=== PATIENT | female | born 1955 | race Caucasian/White ===

== ENCOUNTER → 2016-09-03 | Outpatient (CLI) | payer OTHER ==
[2016-09-03 09:50] LABS: ABSOLUTE EOSINOPHILS # (AUTO) 0.2 10^3/uL (0.0-0.6); ABSOLUTE LYMPHOCYTES (AUTO) 1.3 10^3/uL (0.5-4.7); ABSOLUTE MONOCYTES (AUTO) 0.3 10^3/uL (0.1-1.4); ABSOLUTE NEUT (AUTO) 1.5 10^3/uL (1.7-8.2); BASOPHILS % (AUTO) 0.6 % (0-2); EOSINOPHILS % (AUTO) 4.8 % (0-6); HEMATOCRIT 40.9 % (36.0-47.0); HEMOGLOBIN 13.5 g/dL (12.0-15.5); HGB HCT DIFFERENCE -0.4; LYMPHOCYTES % (AUTO) 38.2 % (13-45); MEAN CORPUSCULAR HEMOGLOBIN 28.7 pg (27.0-33.4); MEAN CORPUSCULAR VOLUME 87 fl (80-97); MONOCYTES % (AUTO) 10.2 % (3-13); RED CELL DISTRIBUTION WIDTH 13.1 % (11.5-14.0); SEGMENTED NEUTROPHILS % (AUTO) 46.2 % (42-78); WHITE BLOOD COUNT 3.3 10^3/uL (4.0-10.5)
[2016-09-03 10:18] LABS: ALANINE AMINOTRANSFERASE 69 U/L (9-52); ALKALINE PHOSPHATASE 134 U/L (38-126); ANION GAP 10 (5-19); ASPARTATE AMINO TRANSFERASE 37 U/L (14-36); BILIRUBIN,DIRECT 0.3 mg/dL (0.0-0.4); BILIRUBIN,TOTAL 0.6 mg/dL (0.2-1.3); BLOOD UREA NITROGEN 14 mg/dL (7-20); CALCIUM 9.6 mg/dL (8.4-10.2); CARBON DIOXIDE 28 mmol/L (22-30); CHLORIDE 103 mmol/L (98-107); CHOLESTEROL 190.49 mg/dL (0-200); CREATININE RESULT 0.63 mg/dL (0.52-1.25); GLUCOSE 165 mg/dL (75-110); POTASSIUM 4.2 mmol/L (3.6-5.0); SODIUM 141.1 mmol/L (137-145); TOTAL PROTEIN 6.5 g/dL (6.3-8.2); TRIGLYCERIDES 51 mg/dL (<150)
[2016-09-03 10:29] LABS: DIRECT LDL 44 mg/dL (<100)
[2016-09-03 10:32] LABS: Direct HDL 127 mg/dL (>40)
== END ==
LOC: CCC 08:45
DX: Z79.01 Long term (current) use of anticoagulants (principal); Z79.899 Other long term (current) drug therapy; Z51.81 Encounter for therapeutic drug level monitoring
CPT/HCPCS: 36415; 80053; 80061; 83036; 84443; 85025

== ENCOUNTER → 2016-10-06 | Outpatient (CLI) | payer OTHER ==
[2016-10-06 08:46] LABS: ABSOLUTE EOSINOPHILS # (AUTO) 0.2 10^3/uL (0.0-0.6); ABSOLUTE LYMPHOCYTES (AUTO) 1.2 10^3/uL (0.5-4.7); ABSOLUTE MONOCYTES (AUTO) 0.4 10^3/uL (0.1-1.4); ABSOLUTE NEUT (AUTO) 1.6 10^3/uL (1.7-8.2); BASOPHILS % (AUTO) 0.6 % (0-2); EOSINOPHILS % (AUTO) 6.3 % (0-6); HEMATOCRIT 38.5 % (36.0-47.0); HGB HCT DIFFERENCE 0.5; LYMPHOCYTES % (AUTO) 34.3 % (13-45); MEAN CORPUSCULAR HEMOGLOBIN 29.3 pg (27.0-33.4); MEAN CORPUSCULAR HGB CONC 33.9 g/dL (32.0-36.0); MEAN CORPUSCULAR VOLUME 86 fl (80-97); MONOCYTES % (AUTO) 10.6 % (3-13); RED BLOOD COUNT 4.46 10^6/uL (3.72-5.28); RED CELL DISTRIBUTION WIDTH 13.5 % (11.5-14.0); SEGMENTED NEUTROPHILS % (AUTO) 48.2 % (42-78); WHITE BLOOD COUNT 3.4 10^3/uL (4.0-10.5)
== END ==
LOC: CCC 08:00
DX: E11.8 Type 2 diabetes mellitus with unspecified complications (principal)
CPT/HCPCS: 36415; 85025

== ENCOUNTER → 2018-03-21 | Outpatient (CLI) | payer OTHER ==
[2018-03-21 09:22] LABS: ABSOLUTE EOSINOPHILS # (AUTO) 0.3 10^3/uL (0.0-0.6); ABSOLUTE LYMPHOCYTES (AUTO) 1.3 10^3/uL (0.5-4.7); ABSOLUTE MONOCYTES (AUTO) 0.4 10^3/uL (0.1-1.4); ABSOLUTE NEUT (AUTO) 1.5 10^3/uL (1.7-8.2); BASOPHILS % (AUTO) 0.5 % (0-2); EOSINOPHILS % (AUTO) 7.8 % (0-6); HEMATOCRIT 38.5 % (36.0-47.0); LYMPHOCYTES % (AUTO) 37.8 % (13-45); MEAN CORPUSCULAR HEMOGLOBIN 28.6 pg (27.0-33.4); MEAN CORPUSCULAR HGB CONC 33.7 g/dL (32.0-36.0); MEAN CORPUSCULAR VOLUME 85 fl (80-97); MONOCYTES % (AUTO) 10.6 % (3-13); PLATELET COUNT 190 10^3/uL (150-450); RED BLOOD COUNT 4.54 10^6/uL (3.72-5.28); SEGMENTED NEUTROPHILS % (AUTO) 43.3 % (42-78); TOTAL CELLS COUNTED % (AUTO) 100 %; WHITE BLOOD COUNT 3.5 10^3/uL (4.0-10.5)
[2018-03-21 09:44] LABS: ALANINE AMINOTRANSFERASE 79 U/L (9-52); ALBUMIN 3.9 g/dL (3.5-5.0); ALKALINE PHOSPHATASE 159 U/L (38-126); ANION GAP 5 (5-19); ASPARTATE AMINO TRANSFERASE 48 U/L (14-36); BILIRUBIN,DIRECT 0.1 mg/dL (0.0-0.4); BILIRUBIN,TOTAL 0.6 mg/dL (0.2-1.3); BLOOD UREA NITROGEN 11 mg/dL (7-20); CALCIUM 9.1 mg/dL (8.4-10.2); CARBON DIOXIDE 32 mmol/L (22-30); CHLORIDE 104 mmol/L (98-107); GLUCOSE 120 mg/dL (75-110); SODIUM 140.9 mmol/L (137-145); TOTAL PROTEIN 6.1 g/dL (6.3-8.2); TRIGLYCERIDES 30 mg/dL (<150)
[2018-03-21 09:55] LABS: DIRECT LDL 51 mg/dL (<100)
== END ==
LOC: CCC 08:41
DX: E11.8 Type 2 diabetes mellitus with unspecified complications (principal)
CPT/HCPCS: 36415; 80053; 80061; 83036; 84443; 85025

== ENCOUNTER 2018-06-29 10:25 | Day surgery (SDC) | payer OTHER ==
[~2018-06-29 10:25] MED LIST: KETOROLAC TROMETHAMINE 0.45% 4 DROP/0.4 ML DROPERETTE OS PRN; MIDAZOLAM 2 MG/2 ML INJ ONE
[2018-06-29] MEDS: CYCLOPENTOLATE 0.2%/PHENYLEPHRINE 1% OPH SOLN 2 ML OS PRN ×3 (11:35→11:55)
[2018-06-29] MEDS: BESIFLOXACIN HCL 0.6% OPH SUSP 5 ML BOTTLE OS PRN ×4 (11:35→12:47)
[2018-06-29] MEDS: TROPICAMIDE 1% OPH SOLN 3 ML OS PRN ×3 (11:35→11:55)
[2018-06-29] MEDS: TETRACAINE HCL 0.5% OPH SOLN 4 ML OS PRN ×3 (11:36→12:15)
[2018-06-29] MEDS: LIDOCAINE 1%/PHENYLEPHRINE 1.5% 1 ML VIAL ONE ×2 (12:27)
[2018-06-29] MEDS: CHONDR SU A NA/HYALUR INTRAOC KIT (SURGICARE) ONE ×2 (12:27)
[2018-06-29] MEDS: EPINEPHRINE INJ/PF 1 MG/1 ML AMPULE ONE ×2 (12:27)
[2018-06-29] MEDS: DORZOLAMIDE HCL 2%/TIMOLOL MALEAT 0.5% OPH SOLN 10 ML OS PRN ×2 (12:47)
--- NOTE | 2018-06-29 20:29 | [facility] OPERATIVE REPORT E ---
[facility] Operative Report NAME: MERI MCKOY AGE: 63Y DATE OF SURGERY: 06/29/2018 ROOM: PREOPERATIVE DIAGNOSES: 1. CATARACT LEFT EYE. 2. PUPIL MIOSIS, LEFT EYE. POSTOPERATIVE DIAGNOSES: 1. CATARACT LEFT EYE. 2. PUPIL MIOSIS, LEFT EYE. OPERATION: Complex cataract extraction with the use of a Malyugin ring due to pupillary miosis where the pupil measured to be less than 4 mm. SURGEON: JERAMIE WILDE M.D. ANESTHESIA: TOPICAL. COMPLICATIONS: None. ESTIMATED BLOOD LOSS: None. PROCEDURE: After obtaining appropriate consent, the patient left eye was prepped and draped in sterile fashion as well as the surgeon in a sterile manner, and the cataract surgery was started. First, the paracentesis blade was used to make a small side-port incision. Viscoelastic was used to inflate the anterior chamber. Next a 2.4 mm incision was made using a 2.4 mm keratome. At this point, the pupil was less than 4.5 mm and was very miotic. In order to complete the capsulorhexis, a Malyugin ring was inserted and found to be in excellent position to help stabilize the pupil. Following this, a continuous capsulorhexis was made using a cystitome and Utrata forceps. Following this, hydrodissection was carried out to make the lens fully loose and mobile, and it was rotated 90 degrees. Following this, a divide and conquer technique was used to phacoemulsify the lens with a CDE of approximately 6.94. The remaining cortex was removed with irrigation/aspiration. Provisc was instilled into the capsular bag to inflate the bag. A SN60WF lens of 22.0 diopters was placed. The remaining viscoelastic material was removed with irrigation/aspiration. After this the Malyugin ring was removed. Following this, the incision was found to be watertight. Besivance was instilled into the eye and a protective shield was placed over the eye. The patient returned to the postoperative recovery in stable condition. Prior to making the capsulorrhexis, a Malyugin ring was inserted due to very small pupil. This was removed at the end of the case. DICTATING PHYSICIAN: JERAMIE WILDE M.D. [id number] 2021 PHY#: [id number] ID: [id number] JOB#: [id number] ACCT: [id number] cc:JERAMIE WILDE M.D. >
--- NOTE | 2018-06-29 20:29 | [facility] DISCHARGE SUMMARY E ---
[facility] Discharge Summary NAME: MERI MCKOY AGE: 63Y ADMITTED: 06/29/2018 DISCHARGED: This is a 63-year-old female who underwent cataract extraction complex of the left eye with use of the Malyugin ring. DIAGNOSES: 1. Cataract left eye. 2. Pupil myosis of the left eye. She underwent surgery because she was having difficulty with glare from headlights at night. She should be on a regular diet. No bending at the waist and no heavy lifting. She should use her Vigamox, Ilevro, and Durezol at 3:00 p.m. and 8:00 p.m. and sleep with a rigid shield. I will see her for her 1-day postop tomorrow. DICTATING PHYSICIAN: JERAMIE WILDE M.D. [id number] PHY#: [id number] ID: [id number] JOB#: [id number] ACCT: [id number] cc:JERAMIE WILDE M.D. >
== END 2018-06-29 13:31 | disposition home or self-care (01) ==
LOC: SC 10:25
PROVIDERS: ATTEND Internal Medicine
DX: H25.812 Combined forms of age-related cataract, left eye (principal); H57.03 Miosis; H40.013 Open angle with borderline findings, low risk, bilateral; Z96.1 Presence of intraocular lens; I11.9 Hypertensive heart disease without heart failure; I50.9 Heart failure, unspecified; E10.9 Type 1 diabetes mellitus without complications; I49.9 Cardiac arrhythmia, unspecified; Z88.0 Allergy status to penicillin; Z79.899 Other long term (current) drug therapy; Z79.82 Long term (current) use of aspirin; Z79.84 Long term (current) use of oral hypoglycemic drugs; Z79.4 Long term (current) use of insulin
CPT/HCPCS: 66982; 82962; V2632; J2250; J3490 ×2; J0171; J2370; 142

== ENCOUNTER 2018-10-15 15:02 | Emergency (ER) | payer SELFPAY ==
[2018-10-15] MEDS ORDERED: HYDROCODONE/ACETAMINOPHEN 5-325 MG TABLET PO ONE (16:01)
[2018-10-15] MEDS ORDERED: CEPHALEXIN 500 MG CAPSULE PO ONE (16:01)
--- NOTE | 2018-10-15 16:29 | RADIOLOGY REPORT (SQ) ---
EXAM DESCRIPTION: ELBOW RIGHT OVER 2 VIEWS COMPLETED DATE/TIME: 10/15/2018 4:18 pm REASON FOR STUDY: r elbow pain COMPARISON: None. EXAM PARAMETERS: NUMBER OF VIEWS: Four views. TECHNIQUE: AP, lateral and oblique radiographic images acquired of the right elbow. LIMITATIONS: None. FINDINGS: MINERALIZATION: Normal. BONES: No acute fracture or dislocation. Old 3 x 4 mm coronoid process avulsion. 5 mm posterior ole cranon spur at the triceps insertion. JOINTS: Small effusion. SOFT TISSUES: No significant soft tissue swelling. No radiopaque foreign body. OTHER: No other significant finding. IMPRESSION: Small joint effusion. No acute fracture identified. Old 3 x 4 mm coronoid process avul lito. TECHNICAL DOCUMENTATION: JOB ID: [id number] [id number] 2010 [employer]- All Rights Reserved Reading location - IP/workstation name: [email or web address]
--- NOTE | 2018-10-15 16:51 | ER Document Report ---
HPI - HPI Patient complains to provider of: right elbow pain Time Seen by Provider: 10/15/18 15:48 Onset: Yesterday Onset/Duration: Gradual Quality of pain: Achy Pain Level: 3 Context: Patient presents complaining of right elbow tenderness. Patient states that she did grab her dog suddenly when it began to bark when a visitor came to their home. Patient complains of increased pain when she rests her elbow on hard surface. Patient denies any fever or known injury. Associated Symptoms: Other - Right elbow pain Exacerbated by: Movement Relieved by: Denies Similar symptoms previously: No Recently seen / treated by doctor: No - ROS ROS below otherwise negative: Yes Systems Reviewed and Negative: Yes All other systems reviewed and negative - CONSTITUTIONAL Constitutional: DENIES: Fever, Chills - GASTROINTESTINAL Gastrointestinal: DENIES: Nausea - MUSCULOSKELETAL Musculoskeletal: REPORTS: Extremity pain - right elbow, Swelling - DERM Skin Color: Normal Skin Problems: None Past Medical History - General Information source: Patient - Social History Smoking Status: Never Smoker Chew tobacco use (# tins/day): No Frequency of alcohol use: None Drug Abuse: None Occupation: Retail Lives with: Spouse/Significant other Family History: Reviewed & Not Pertinent Patient has suicidal ideation: No Patient has homicidal ideation: No - Past Medical History Cardiac Medical History: Reports: Hx Congestive Heart Failure, Hx Hypertension Denies: Hx Heart Attack Pulmonary Medical History: Denies: Hx Asthma Neurological Medical History: Denies: Hx Cerebrovascular Accident, Hx Seizures Renal/ Medical History: Denies: Hx Peritoneal Dialysis GI Medical History: Denies: Hx Hepatitis, Hx Hiatal Hernia, Hx Ulcer Infectious Medical History: Denies: Hx Hepatitis Past Surgical History: Reports: Hx Open Heart Surgery - 1970 VENTRICULAR DEFECT Vertical Provider Document - CONSTITUTIONAL Agree With Documented VS: Yes Exam Limitations: No Limitations General Appearance: WD/WN, No Apparent Distress - INFECTION CONTROL TRAVEL OUTSIDE OF THE [place] IN LAST 30 DAYS: No - HEENT HEENT: Atraumatic, Normocephalic - NECK Neck: Normal Inspection, Supple - RESPIRATORY Respiratory: Breath Sounds Normal, No Respiratory Distress - CARDIOVASCULAR Cardiovascular: Regular Rate, Regular Rhythm Pulses: Normal: Radial - MUSCULOSKELETAL/EXTREMETIES Musculoskeletal/Extremeties: MAEW, Tender - Right elbow tenderness over olecranon process with mild swelling. Normal skin temperature. Normal skin color. Patient with abrasion near the joint. Tenderness increases with the extremes of full extension and flexion. Course - Re-evaluation Re-evalutation: 10/15/18 16:47 Patient with tenderness over olecranon process with mild swelling. Discussed with patient concern about possible bursitis. Patient does have an abrasion near the left elbow. Will cover with antibiotics for possible cellulitis although suspect likely bursitis is the culprit for patient's pain symptoms. - Vital Signs Vital signs: Temp Pulse Resp BP Pulse Ox 98.5 F 89 17 178/70 H 97 10/15/18 15:08 10/15/18 15:08 10/15/18 15:08 10/15/18 15:08 10/15/18 15:08 - Diagnostic Test Radiology reviewed: Image reviewed, Reports reviewed Discharge - Discharge Clinical Impression: Right elbow pain, Olecranon bursitis of right elbow Condition: Stable Disposition: HOME, SELF-CARE Instructions: Cephalexin ([facility]), Olecranon Bursitis ([facility]), Oral Narcotic Medication ([facility]) Additional Instructions: Return immediately for any new or worsening symptoms: Fever, redness, increased pain, increased swelling or any concerning symptoms Followup with your primary care provider, call tomorrow to make a followup appointment Avoid putting pressure and rubbing elbow on hard surfaces. Prescriptions: Cephalexin Monohydrate [Keflex 500 mg Capsule] 500 mg PO Q6H 5 Days capsule Hydrocodone/Acetaminophen [[place] 5-325 mg Tablet] 1 tab PO Q6 PRN #12 tablet PRN Reason: Forms: Return to Work Referrals: [facility] [Primary Care Provider] - Follow up as needed
[2018-10-15 17:01] VITALS: BP 154/68
== END 2018-10-15 16:55 | disposition home or self-care (01) ==
LOC: ER 15:02
DX: M70.21 Olecranon bursitis, right elbow (principal); S40.812A Abrasion of left upper arm, initial encounter; X58.XXXA Exposure to other specified factors, initial encounter; M25.521 Pain in right elbow; I10 Essential (primary) hypertension
CPT/HCPCS: 99283

== ENCOUNTER → 2018-10-27 | Outpatient (CLI) | payer OTHER ==
[2018-10-27 10:29] LABS: ANION GAP 7 (5-19); BLOOD UREA NITROGEN 11 mg/dL (7-20); CALCIUM 9.8 mg/dL (8.4-10.2); CARBON DIOXIDE 27 mmol/L (22-30); CHLORIDE 104 mmol/L (98-107); GLUCOSE 176 mg/dL (75-110)
== END ==
LOC: CCC 08:55
DX: E11.8 Type 2 diabetes mellitus with unspecified complications (principal)
CPT/HCPCS: 36415; 80048; 83036

== ENCOUNTER → 2019-02-09 | Outpatient (CLI) | payer OTHER ==
--- NOTE | 2019-02-09 14:23 | WOMENS IMAGING REPORT ---
EXAM DESCRIPTION: U/S PELVIS NON-OB COMPLETED DATE/TIME: 02/09/2019 1:23 pm REASON FOR STUDY: N13.9 OBSTRUCTIVE AND REFLUX UROPATHY, UNSPECIFIED N13.9 OBSTRUCTIVE AND REFLUX U ROPATHY, UNSPECIFIED COMPARISON: None. TECHNIQUE: Dynamic and static grayscale images acquired of the pelvis via transabdominal approach an d recorded on PACS. Additional selected color Doppler and spectral images recorded. LIMITATIONS: None. 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 ENDOMETRIAL STRIPE: No mass or fluid detected. CERVIX: No regional mass or cysts evident. RIGHT OVARY AND DOPPLER: Not seen. LEFT OVARY AND DOPPLER: Not seen. FREE FLUID: None noted. OTHER: No bladder mass. Pre and postvoid residuals 329 and 5 cc respectively. MEASUREMENTS: UTERUS: 6.1 x 2.0 x 5.9 cm ENDOMETRIAL STRIPE: Variable between 3.9 and 5.3 mm RIGHT OVARY: Not seen. LEFT OVARY: Not seen. IMPRESSION: Uterus and endometrium as above. Ovaries not identified. No significant postvoid resid ual in the bladder. TECHNICAL DOCUMENTATION: JOB ID: [id number] [employer]- All Rights Reserved Rev-07/15 Reading location - IP/workstation name: [email or web address]
== END ==
LOC: WI 12:44
PROVIDERS: ATTEND Family Medicine
DX: N13.9 Obstructive and reflux uropathy, unspecified (principal); Q51.3 Bicornate uterus
CPT/HCPCS: 76856

== ENCOUNTER → 2019-09-08 | Outpatient (CLI) | payer OTHER ==
[2019-09-08 10:50] LABS: ABSOLUTE EOSINOPHILS # (AUTO) 0.2 10^3/uL (0.0-0.6); ABSOLUTE LYMPHOCYTES (AUTO) 1.3 10^3/uL (0.5-4.7); ABSOLUTE MONOCYTES (AUTO) 0.4 10^3/uL (0.1-1.4); ABSOLUTE NEUT (AUTO) 2.3 10^3/uL (1.7-8.2); BASOPHILS % (AUTO) 0.7 % (0-2); EOSINOPHILS % (AUTO) 4.9 % (0-6); HEMATOCRIT 39.1 % (36.0-47.0); HEMOGLOBIN 13.1 g/dL (12.0-15.5); MEAN CORPUSCULAR HEMOGLOBIN 28.6 pg (27.0-33.4); MEAN CORPUSCULAR HGB CONC 33.6 g/dL (32.0-36.0); MEAN CORPUSCULAR VOLUME 85 fl (80-97); MONOCYTES % (AUTO) 9.6 % (3-13); PLATELET COUNT 197 10^3/uL (150-450); RED BLOOD COUNT 4.59 10^6/uL (3.72-5.28); SEGMENTED NEUTROPHILS % (AUTO) 53.8 % (42-78); TOTAL CELLS COUNTED % (AUTO) 100 %; WHITE BLOOD COUNT 4.2 10^3/uL (4.0-10.5)
[2019-09-08 11:11] LABS: ALBUMIN 4.1 g/dL (3.5-5.0); ALKALINE PHOSPHATASE 138 U/L (38-126); ASPARTATE AMINO TRANSFERASE 49 U/L (14-36); BILIRUBIN,TOTAL 0.6 mg/dL (0.2-1.3); BLOOD UREA NITROGEN 12 mg/dL (7-20); CALCIUM 9.4 mg/dL (8.4-10.2); CHOLESTEROL 194.66 mg/dL (0-200); GLUCOSE 164 mg/dL (75-110); POTASSIUM 3.6 mmol/L (3.6-5.0); TOTAL PROTEIN 6.3 g/dL (6.3-8.2); TRIGLYCERIDES 36 mg/dL (<150)
[2019-09-08 11:16] LABS: ANION GAP 5 (5-19); CARBON DIOXIDE 29 mmol/L (22-30); CHLORIDE 103 mmol/L (98-107)
[2019-09-08 11:27] LABS: DIRECT LDL 42 mg/dL (<100)
== END ==
LOC: CCC 09:21
PROVIDERS: ATTEND Internal Medicine
DX: E11.9 Type 2 diabetes mellitus without complications (principal); I10 Essential (primary) hypertension
CPT/HCPCS: 36415; 80053; 80061; 83036; 84443; 85025

== ENCOUNTER → 2019-10-08 | Outpatient (CLI) | payer OTHER ==
[2019-10-10 05:38] LABS: HEPATITIS C VIRUS AB <0.1 s/co ratio (0.0-0.9); HEPATITS B SURFACE ANTIGEN Negative (Negative)
[2019-10-10 07:15] LABS: HEPATITIS B CORE AB TOT Negative (Negative); HEPATITIS B SURFACE AB QUAL Non Reactive (.)
== END ==
LOC: CCC 14:56
PROVIDERS: ATTEND Internal Medicine
DX: R94.5 Abnormal results of liver function studies (principal)
CPT/HCPCS: 36415; 86704; 86706; 86803; 86804; 87340

== ENCOUNTER 2019-10-29 20:50 | Inpatient (IN) | payer OTHER ==
[2019-10-29] MEDS ORDERED: ACETAMINOPHEN 325 MG TABLET PO ONE (23:32)
--- NOTE | 2019-10-29 23:32 | ER Document Report ---
ED Medical Screen (RME) - General Chief Complaint: Fever Stated Complaint: SHORTNESS OF BREATH Time Seen by Provider: 10/29/19 23:24 Primary Care Provider: [facility] [Primary Care Provider] - Follow up as needed Mode of Arrival: Ambulatory Information source: Patient Notes: 64-year-old female presented to ED for shortness of breath cough low-grade fever pedal edema bilaterally. She states is been going on for about little more than a week but it was coming and going. She states at night when she would put her feet up the pedal edema was going away but now it will not go away. She states over the last couple weeks she is gained about 8 pounds. She states she goes to [facility] and has not been to the doctor for a while. She is alert oriented respirations regular nonlabored speaking in full sentences. I have greeted and performed a rapid initial assessment of this patient. A comprehensive ED assessment and evaluation of the patient, analysis of test results and completion of medical decision making process will be conducted by an additional ED providers. TRAVEL OUTSIDE OF THE [place] IN LAST 30 DAYS: No - Related Data Allergies/Adverse Reactions: latex Allergy (Verified 10/15/18 15:03) Generalized Itching Penicillins Allergy (Verified 10/15/18 15:03) Hives Home Medications: lantus, novalog sliding scale, airbourne, januvia, coreg, amilodipine, low dose asa, lisinopril, metformin, requip Past Medical History - Past Medical History Cardiac Medical History: Reports: Hx Congestive Heart Failure, Hx Hypertension Denies: Hx Heart Attack Pulmonary Medical History: Denies: Hx Asthma Neurological Medical History: Denies: Hx Cerebrovascular Accident, Hx Seizures Renal/ Medical History: Denies: Hx Peritoneal Dialysis GI Medical History: Denies: Hx Hepatitis, Hx Hiatal Hernia, Hx Ulcer Infectious Medical History: Denies: Hx Hepatitis Past Surgical History: Reports: Hx Open Heart Surgery - 1970 VENTRICULAR DEFECT. Denies: Hx Mastectomy, Hx Pacemaker Physical Exam - Vital signs Vitals: Temp Pulse Resp BP Pulse Ox 100.4 F 83 18 165/73 H 98 10/29/19 21:32 10/29/19 21:32 10/29/19 21:32 10/29/19 21:32 10/29/19 21:32 Course - Vital Signs Vital signs: Temp Pulse Resp BP Pulse Ox 100.4 F 83 18 165/73 H 98 10/29/19 21:32 10/29/19 21:32 10/29/19 21:32 10/29/19 21:32 10/29/19 21:32 Doctor's Discharge - Discharge Referrals: [facility] [Primary Care Provider] - Follow up as needed
[2019-10-30] MEDS ORDERED: FUROSEMIDE INJ/PF 40 MG/4 ML SDV IV ONE (01:04)
[2019-10-30 01:25] LABS: ABSOLUTE LYMPHOCYTES (AUTO) 1.4 10^3/uL (0.5-4.7); ABSOLUTE MONOCYTES (AUTO) 0.6 10^3/uL (0.1-1.4); TOTAL CELLS COUNTED % (AUTO) 100 %
[2019-10-30 01:38] LABS: ABSOLUTE EOSINOPHILS # (AUTO) 0.1 10^3/uL (0.0-0.6); ABSOLUTE NEUT (AUTO) 2.7 10^3/uL (1.7-8.2); BASOPHILS % (AUTO) 0.4 % (0-2); EOSINOPHILS % (AUTO) 2.6 % (0-6); HEMATOCRIT 38.4 % (36.0-47.0); LYMPHOCYTES % (AUTO) 29.9 % (13-45); MEAN CORPUSCULAR HEMOGLOBIN 28.6 pg (27.0-33.4); MEAN CORPUSCULAR HGB CONC 33.8 g/dL (32.0-36.0); MEAN CORPUSCULAR VOLUME 85 fl (80-97); MONOCYTES % (AUTO) 11.9 % (3-13); PLATELET COUNT 202 10^3/uL (150-450); RED BLOOD COUNT 4.54 10^6/uL (3.72-5.28); RED CELL DISTRIBUTION WIDTH 14.3 % (11.5-14.0); SEGMENTED NEUTROPHILS % (AUTO) 55.2 % (42-78); WHITE BLOOD COUNT 4.8 10^3/uL (4.0-10.5)
[2019-10-30 01:41] LABS: ALKALINE PHOSPHATASE 114 U/L (38-126); ANION GAP 9 (5-19); ASPARTATE AMINO TRANSFERASE 32 U/L (14-36); BILIRUBIN,DIRECT 0.2 mg/dL (0.0-0.4); BILIRUBIN,TOTAL 0.6 mg/dL (0.2-1.3); BLOOD UREA NITROGEN 11 mg/dL (7-20); CALCIUM 9.5 mg/dL (8.4-10.2); CARBON DIOXIDE 26 mmol/L (22-30); CHLORIDE 101 mmol/L (98-107); CREATINE KINASE 104 U/L (30-135); GLUCOSE 325 mg/dL (75-110); POTASSIUM 3.8 mmol/L (3.6-5.0)
--- NOTE | 2019-10-30 01:45 | RADIOLOGY REPORT (SQ) ---
EXAM DESCRIPTION: XR CHEST 2 VIEWS COMPLETED DATE/TME: 10/29/2019 23:30 CLINICAL HISTORY: 64 years, Female, Short of breath pedal edema history of CHF COMPARISON: None. NUMBER OF VIEWS: 1 TECHNIQUE: Portable chest LIMITATIONS: None. FINDINGS: The heart size is at the upper limits of normal. Osteopenia with mild interstitial edema. Small bibasilar effusions. No pneumothorax IMPRESSION: Small bibasilar effusions. Mild interstitial edema copyright 2010 [employer]- All Rights Reserved
[2019-10-30 01:52] LABS: TROPONIN I 0.021 ng/mL
[2019-10-30] MEDS ORDERED: INSULIN REG, HUMAN 100 UNIT/ML 3 ML VIAL (PYX) SUBCUT ONE (02:31)
[2019-10-30 02:58] LABS: APPEARANCE,URINE CLEAR; BILIRUBIN,URINE NEGATIVE (NEGATIVE); COLOR,URINE STRAW; GLUCOSE, URINE >=500 mg/dL (NEGATIVE); KETONES,URINE NEGATIVE (NEGATIVE); LEUKOCYTE ESTERASE,URINE NEGATIVE (NEGATIVE); NITRITE,URINE NEGATIVE (NEGATIVE); PROTEIN,URINE NEGATIVE (NEGATIVE); URINE SPECIFIC GRAVITY 1.008; UROBILINOGEN,URINE NEGATIVE mg/dL (<2.0)
[2019-10-30 03:32] LABS: VENOUS BLOOD BASE EXCESS 2.8 mmol/L; VENOUS BLOOD HCO3 26.6 mmol/L (20-32); VENOUS BLOOD PCO2 38.4 mmHg (35-63); VENOUS BLOOD PH 7.46 (7.30-7.42)
--- NOTE | 2019-10-30 06:18 | ER Document Report ---
ED General - General Chief Complaint: Fever Stated Complaint: SHORTNESS OF BREATH Time Seen by Provider: 10/29/19 23:24 Primary Care Provider: [facility] [NO LOCAL MD] - Follow up as needed Mode of Arrival: Ambulatory Information source: Patient Notes: Patient is a 64-year-old female comes emergency room complaining of a 1 to 2- week onset of a cough. She is also had developing dyspnea on exertion with increased orthopnea. Patient states that over the past 2 to 3 days it is been is worse she is unable to lay flat she is actually having to sleep in a recliner in the living room. If not she is laying on 2-3 pillows. Patient has a history of congestive heart failure. She has a history of open heart surgery at 14 years of age for a ventricle septal defect. She currently goes to [facility] and she has been fairly well controlled for a long time. She currently does not take any diuretics states that she used to but they recently in a few months have taken her off of the diuretics. Patient has no history of other heart problems besides that septal defect. And that was fixed as stated age 14. She has had also a history of byi-hqfzcan-mmmlvekng diabetes. She has had absolutely no chest pain she is had no nausea no vomiting no diarrhea she has had shortness of breath which has been increasing over the past couple of weeks. TRAVEL OUTSIDE OF THE [place] IN LAST 30 DAYS: No - HPI Onset: Other - 3 days Onset/Duration: Gradual, Persistent, Worse Quality of pain: Achy Pain Level: 3 Associated symptoms: Shortness of breath. denies: Chest pain, Productive cough Exacerbated by: Movement, Walking Relieved by: Denies Similar symptoms previously: Yes Recently seen / treated by doctor: No - Related Data Allergies/Adverse Reactions: latex Allergy (Verified 10/30/19 07:20) Generalized Itching Penicillins Allergy (Verified 10/30/19 07:20) Hives Home Medications: lantus, novalog sliding scale, airbourne, januvia, coreg, amilodipine, low dose asa, lisinopril, metformin, requip Past Medical History - General Information source: Patient - Social History Smoking Status: Never Smoker Cigarette use (# per day): No Chew tobacco use (# tins/day): No Smoking Education Provided: No Frequency of alcohol use: None Drug Abuse: None Family History: Reviewed & Not Pertinent Patient has suicidal ideation: No - Past Medical History Cardiac Medical History: Reports: Hx Congestive Heart Failure, Hx Hypertension Denies: Hx Heart Attack Pulmonary Medical History: Denies: Hx Asthma Neurological Medical History: Denies: Hx Cerebrovascular Accident, Hx Seizures Endocrine Medical History: Reports: Hx Diabetes Mellitus Type 2 Renal/ Medical History: Denies: Hx Peritoneal Dialysis GI Medical History: Denies: Hx Hepatitis, Hx Hiatal Hernia, Hx Ulcer Infectious Medical History: Denies: Hx Hepatitis Past Surgical History: Reports: Hx Open Heart Surgery - 1970 VENTRICULAR DEFECT. Denies: Hx Mastectomy, Hx Pacemaker Review of Systems - Review of Systems Constitutional: No symptoms reported EENT: No symptoms reported Cardiovascular: See HPI, Orthopnea. denies: Chest pain, Heart racing Respiratory: See HPI, Cough, Short of breath Gastrointestinal: No symptoms reported Genitourinary: No symptoms reported Female Genitourinary: No symptoms reported Musculoskeletal: No symptoms reported Skin: No symptoms reported Hematologic/Lymphatic: No symptoms reported Neurological/Psychological: No symptoms reported -: Yes All other systems reviewed and negative Physical Exam - Vital signs Vitals: Temp Pulse Resp BP Pulse Ox 100.4 F 83 18 165/73 H 98 10/29/19 21:32 10/29/19 21:32 10/29/19 21:32 10/29/19 21:32 10/29/19 21:32 Interpretation: Hypertensive - Notes Notes: PHYSICAL EXAMINATION: GENERAL: Patient is a well-nourished well-developed 64-year-old female no apparent distress on physical exam. Patient does seem to be slightly uncomfortable. She is in sitting in a semierect position. HEAD: Atraumatic, normocephalic. EYES: Pupils equal round and reactive to light, extraocular movements intact, conjunctiva are normal. ENT: Nares patent, oropharynx clear without exudates. Moist mucous membranes. NECK: Normal range of motion, supple without lymphadenopathy LUNGS: Patient has bilateral breath sounds breath sounds decreased throughout there is faint rales scattered in bilateral lower bases No rhonchi or wheeze heard. HEART: Regular rate and rhythm without murmurs ABDOMEN: Soft, nontender, nondistended abdomen. No guarding, no rebound. No masses appreciated. Female : deferred Musculoskeletal: Normal range of motion, lamination patient's lower extremities show she has 2+ pitting edema up to the knees. She has full range of motion of the legs without any difficulties. Rest the vascular exam a lower extremities normal. She has good cap refill in nailbeds of the toes. NEUROLOGICAL: Cranial nerves grossly intact. Normal speech, normal gait. Normal sensory, motor exams PSYCH: Normal mood, normal affect. SKIN: Warm, Dry, normal turgor, no rashes or lesions noted. Course - Re-evaluation Re-evalutation: 10/30/19 06:18 Patient's BNP came back at 2500. Her for stroke was just slightly elevated w aiting on the second troponin to come back now. I discussed the case with and she has suggested that I get the second troponin and then depending on its results either have her admitted or talk to cardiology to see if they feel like we can discharge her home for follow-up. 10/30/19 07:49 Dr. Conner from cardiology came down and saw the patient and felt that with her past history and not having an echo or stress test that it would be better for her to come in the hospital. He is requested that I contact the hospitalist and have her admitted. - Vital Signs Vital signs: Temp Pulse Resp BP Pulse Ox 98.5 F 83 20 139/67 H 97 10/30/19 00:44 10/29/19 21:32 10/30/19 07:34 10/30/19 07:01 10/30/19 07:34 - Laboratory Result Diagrams: 10/30/19 01:05 10/30/19 01:05 Laboratory results interpreted by me: 10/30/19 10/30/19 10/30/19 01:05 01:05 01:05 RDW 14.3 H VBG pH Sodium 136.4 L Creatinine 0.50 L Glucose 325 H ALT 37 H NT-Pro-B Natriuret Pep 2540 H Total Protein 6.0 L Urine Glucose (UA) 10/30/19 10/30/19 02:49 02:49 RDW VBG pH 7.46 H Sodium Creatinine Glucose ALT NT-Pro-B Natriuret Pep Total Protein Urine Glucose (UA) >=500 H Discharge - Discharge Clinical Impression: Congestive heart failure Qualifiers: Heart failure type: unspecified Heart failure chronicity: acute Qualified Code(s): I50.9 - Heart failure, unspecified Condition: Stable Disposition: ADMITTED INPATIENT Admitting Provider: Jerson (Hospitalist) Unit Admitted: Telemetry Referrals: [facility] [NO LOCAL MD] - Follow up as needed
--- NOTE | 2019-10-30 06:41 | EKG REPORT ---
SEVERITY:- ABNORMAL ECG - SINUS RHYTHM VENTRICULAR PREMATURE COMPLEX BORDERLINE LEFT AXIS DEVIATION NONSPECIFIC T ABNORMALITIES, ANT-LAT LEADS BORDERLINE PROLONGED QT INTERVAL : Confirmed by: Leobardo Mcclendon MD 30-Oct-2019 06:40:52
[2019-10-30] MEDS ORDERED: ONDANSETRON HCL INJ/PF 4 MG/2 ML SDV IV PRN (10:02)
[2019-10-30] MEDS ORDERED: ONDANSETRON 4 MG TAB.RAPDIS PO PRN (10:02)
[2019-10-30] MEDS ORDERED: ACETAMINOPHEN 325 MG TABLET PO PRN (10:02)
[2019-10-30 11:31] LABS: ANION GAP 7 (5-19); BLOOD UREA NITROGEN 9 mg/dL (7-20); CARBON DIOXIDE 27 mmol/L (22-30); CHLORIDE 102 mmol/L (98-107); GLUCOSE 315 mg/dL (75-110); POTASSIUM 3.7 mmol/L (3.6-5.0)
[2019-10-30] MEDS: DOCUSATE SODIUM 100 MG/10 ML UDC PO SCH (11:56)
[2019-10-30] MEDS ORDERED: INSULIN GLARGINE,HUM.REC.ANLOG 1,000 UNIT/10 ML VIAL SUBCUT SCH (16:15)
--- NOTE | 2019-10-30 16:23 | ADVANCED CARE ---
- Diagnosis (1) Congestive heart failure Diagnosis Current: Yes (2) T2DM (type 2 diabetes mellitus) Diagnosis Current: Yes (3) Orthopnea Diagnosis Current: Yes (4) HTN (hypertension) Diagnosis Current: Yes (5) S/P VSD repair Diagnosis Current: Yes Attendance: Patient Resuscitation Status: Full Code Discussion: All aspects of code status discussed with patient/POA including cardioversion, chest compressions, and intubation and the patient/POA indicated they wish to be full code MPOA is designated as: Serena Erickson Time Spent: Greater than 16 minutes
--- NOTE | 2019-10-30 16:23 | PDOC H&P ---
History of Present Illness Admission Date/PCP: 10/30/19 07:57 History of Present Illness: MERI MCKOY is a 64 year old female with past medical history significant for chronic systolic CHF, VSD status post repair, HTN, T2DM on insulin who presents with a 2-week history of progressive bilateral lower extremity edema/abdominal distention/dry cough/dyspnea on exertion, came to ED for further evaluation. Chest x-ray with small bibasilar effusions and interstitial edema, EKG with nonspecific ST changes and borderline prolonged QTC, troponin very mildly elevated. Cardiology contacted by ED and they have agreed to consult. Patient found to have significant lower extremity edema with wet sounding lungs. Given IV Lasix with significant improvement in both edema and breathing. Patient denies any coronavirus contacts and denies fevers at home. Past Medical History Cardiac Medical History: Reports: Congestive Heart Failure, Hypertension Denies: Myocardial Infarction Pulmonary Medical History: Denies: Asthma Neurological Medical History: Denies: Seizures Endocrine Medical History: Reports: Diabetes Mellitus Type 2 GI Medical History: Denies: Hepatitis, Hiatal Hernia Psychiatric Medical History: Denies: Depression Hematology: Denies: Anemia, Sickle Cell Disease Past Surgical History Past Surgical History: Denies: Amputation, Mastectomy, Pacemaker Social History Information Source: Patient Smoking Status: Never Smoker Electronic Cigarette use?: No Frequency of Alcohol Use: Rare Drugs: None Hx Prescription Drug Abuse: No - Advance Directive Resuscitation Status: Full Code Surrogate healthcare decision maker:: Spouse Dre Family History Family History: Reviewed & Not Pertinent Parental Family History Reviewed: Yes Children Family History Reviewed: Yes Sibling(s) Family History Reviewed.: Yes Medication/Allergy Home Medications: Amlodipine Besylate 5 mg PO DAILY 11/11/15 Aspirin [Aspirin EC] 81 mg PO DAILY 11/11/15 Carvedilol [Coreg 6.25 mg Tablet] 6.25 mg PO Q12 11/11/15 Lisinopril 20 mg PO DAILY 11/11/15 Insulin Glargine,Hum.rec.anlog [Lantus Insulin 100 Unit/1 ml 10 ml] 26 unit SQ QAM 06/23/18 Metformin HCl 1,000 mg PO BID 06/23/18 Insulin Aspart [Novolog Insulin (Aspart) 100 unit/mL] 0 units SQ .PERSLIDINGSCALE 10/30/19 Ropinirole HCl [Requip Xl] 2 mg PO QHS 10/30/19 Sitagliptin Phosphate [Januvia 50 mg Tablet] 100 mg PO DAILY 10/30/19 Allergies/Adverse Reactions: latex Allergy (Verified 10/30/19 07:20) Generalized Itching Penicillins Allergy (Verified 10/30/19 07:20) Hives Review of Systems All systems: reviewed and no additional remarkable complaints except as stated - Review of systems per HPI, otherwise negative Physical Exam Vital Signs: Temp Pulse Resp BP Pulse Ox 98.1 F 79 17 158/68 H 96 10/30/19 14:57 10/30/19 15:09 10/30/19 14:57 10/30/19 14:57 10/30/19 14:57 Intake & Output 10/29/19 10/30/19 10/31/19 06:59 06:59 06:59 Output Total 600 Balance -600 Weight 59.874 kg 56.1 kg General appearance: PRESENT: no acute distress, well-developed, well-nourished Head exam: PRESENT: atraumatic, normocephalic Eye exam: PRESENT: conjunctiva pink Mouth exam: PRESENT: moist Respiratory exam: PRESENT: rales - Wet rales, unlabored. ABSENT: rhonchi, wheezes Cardiovascular exam: PRESENT: RRR. ABSENT: diastolic murmur, rubs, systolic murmur GI/Abdominal exam: PRESENT: normal bowel sounds, soft. ABSENT: distended, guarding, mass, organolmegaly, rebound, tenderness Extremities exam: PRESENT: pedal edema, +1 edema Neurological exam: PRESENT: alert, awake, oriented to person, oriented to place, oriented to time, oriented to situation Psychiatric exam: PRESENT: appropriate affect, normal mood Skin exam: PRESENT: dry, intact, warm Results Laboratory Results: 10/30/19 01:05 10/30/19 10:46 10/30/19 10/30/19 10/30/19 01:05 01:05 02:49 WBC 4.8 RBC 4.54 Hgb 13.0 Hct 38.4 MCV 85 MCH 28.6 MCHC 33.8 RDW 14.3 H Plt Count 202 Seg Neutrophils % 55.2 VBG pH 7.46 H VBG pCO2 38.4 VBG HCO3 26.6 VBG Base Excess 2.8 Sodium 136.4 L Potassium 3.8 Chloride 101 Carbon Dioxide 26 Anion Gap 9 BUN 11 Creatinine 0.50 L Est GFR ( Amer) > 60 Glucose 325 H Calcium 9.5 Magnesium 2.1 Total Bilirubin 0.6 AST 32 Alkaline Phosphatase 114 Total Protein 6.0 L Albumin 4.0 Urine Color Urine Appearance Urine pH Ur Specific [place] Urine Protein Urine Glucose (UA) Urine Ketones Urine Blood Urine Nitrite Ur Leukocyte Esterase Urine WBC (Auto) Urine RBC (Auto) 10/30/19 10/30/19 02:49 10:46 WBC RBC Hgb Hct MCV MCH MCHC RDW Plt Count Seg Neutrophils % VBG pH VBG pCO2 VBG HCO3 VBG Base Excess Sodium 136.2 L Potassium 3.7 Chloride 102 Carbon Dioxide 27 Anion Gap 7 BUN 9 Creatinine 0.51 L Est GFR ( Amer) > 60 Glucose 315 H Calcium 9.0 Magnesium Total Bilirubin AST Alkaline Phosphatase Total Protein Albumin Urine Color STRAW Urine Appearance CLEAR Urine pH 6.0 Ur Specific [place] 1.008 Urine Protein NEGATIVE Urine Glucose (UA) >=500 H Urine Ketones NEGATIVE Urine Blood NEGATIVE Urine Nitrite NEGATIVE Ur Leukocyte Esterase NEGATIVE Urine WBC (Auto) 1 Urine RBC (Auto) 1 10/30/19 10/30/19 10/30/19 01:05 01:05 05:25 Creatine Kinase 104 Troponin I 0.021 0.020 NT-Pro-B Natriuret Pep 2540 H Impressions: Chest X-Ray 10/29/19 23:30 IMPRESSION: Small bibasilar effusions. Mild interstitial edema copyright 2011 [employer]- All Rights Reserved Assessment and Plan - Diagnosis (1) Congestive heart failure Qualifiers: Heart failure type: systolic Heart failure chronicity: acute Qualified Code(s): I50.21 - Acute systolic (congestive) heart failure Is this a current diagnosis for this admission?: Yes Plan: Per patient this is acute on chronic BNP 2500, troponin very mildly elevated, trending Echocardiogram Cardiology consulted IV Lasix Continue home cardiac medications (2) T2DM (type 2 diabetes mellitus) Qualifiers: Diabetes mellitus intermediate insulin use: with longwall shearer operator use Diabetes mellitus complication status: without complication Qualified Code(s): E11.9 - Type 2 diabetes mellitus without complications; Z79.4 - [facility] (current) use of insulin Is this a current diagnosis for this admission?: Yes Plan: Restarted home Lantus, sliding scale insulin, Accu-Cheks Trend BMP (3) Orthopnea Is this a current diagnosis for this admission?: Yes (4) HTN (hypertension) Is this a current diagnosis for this admission?: Yes Plan: Uncontrolled, restarted home medications (5) S/P VSD repair Is this a current diagnosis for this admission?: Yes Plan: No acute problems per patient - Time Time Spent with patient: 35 or more minutes Medications reviewed and adjusted accordingly: Yes Anticipated Discharge Disposition: Home, Self Care Anticipated Discharge Timeframe: within 48 hours - Inpatient Certification Based on my medical assessment, after consideration of the patient's comorbidities, presenting symptoms, or acuity I expect that the services needed warrant INPATIENT care.: Yes I certify that my determination is in accordance with my understanding of Medicare's requirements for reasonable and necessary INPATIENT services [42 CFR 412.3e].: Yes Medical Necessity: Significant Comorbidiites Make Outpatient Treatment Too Risky, Need Close Monitoring Due to Risk of Patient Decompensation, Risk of Complication if Not Cared For in Hospital, Risk of Diagnosis Which Will Require Inpatient Eval/Care/Monitoring
[2019-10-30] MEDS ORDERED: GLUCAGON,HUMAN RECOMB 1 MG INJ IM PRN (16:30)
[2019-10-30] MEDS ORDERED: DEXTROSE 40% GEL 15 GM TUBE PO PRN (16:30)
[2019-10-30] MEDS ORDERED: DEXTROSE 50%-WATER SYRINGE 12.5 GM/25 ML DOSE IV PRN (16:30)
[2019-10-30] MEDS ORDERED: DEXTROSE 40% GEL 15 GM TUBE X 2 PO PRN (16:30)
[2019-10-30] MEDS ORDERED: DEXTROSE 50%-WATER SYRINGE 25 GM/50 ML DOSE IV PRN (16:30)
[2019-10-30] MEDS ORDERED: ASPIRIN 81 MG TABLET, ENT COATED PO SCH (17:00)
[2019-10-30] MEDS: FUROSEMIDE INJ/PF 40 MG/4 ML SDV IV SCH (17:13)
[2019-10-30] MEDS: CARVEDILOL 6.25 MG TABLET PO SCH (17:13)
[2019-10-30] MEDS: SITAGLIPTIN PHOSPHATE 50 MG TABLET PO SCH (17:14)
[2019-10-30] MEDS: AMLODIPINE BESYLATE 5 MG TABLET PO SCH (17:14)
[2019-10-30] MEDS: INSULIN LISPRO 100 UNIT/ML 3 ML VIAL SUBCUT SCH ×2 (17:14→21:38)
[2019-10-30] MEDS: ASPIRIN 81 MG TABLET, ENT COATED PO SCH (21:39)
[2019-10-30] MEDS ORDERED: (PENDING PHARMACY ID) (Ropinirole Hcl [Requip Xl] 2 MG) PO SCH (22:00)
[2019-10-30] MEDS ORDERED: INSULIN LISPRO 100 UNIT/ML 3 ML VIAL SUBCUT SCH (22:00)
[2019-10-31 04:20] LABS: ABSOLUTE EOSINOPHILS # (AUTO) 0.2 10^3/uL (0.0-0.6); ABSOLUTE LYMPHOCYTES (AUTO) 1.5 10^3/uL (0.5-4.7); ABSOLUTE MONOCYTES (AUTO) 0.6 10^3/uL (0.1-1.4); ABSOLUTE NEUT (AUTO) 2.3 10^3/uL (1.7-8.2); EOSINOPHILS % (AUTO) 4.1 % (0-6); HEMATOCRIT 38.5 % (36.0-47.0); LYMPHOCYTES % (AUTO) 33.2 % (13-45); MEAN CORPUSCULAR HEMOGLOBIN 28.4 pg (27.0-33.4); MEAN CORPUSCULAR HGB CONC 33.8 g/dL (32.0-36.0); MEAN CORPUSCULAR VOLUME 84 fl (80-97); PLATELET COUNT 181 10^3/uL (150-450); RED BLOOD COUNT 4.58 10^6/uL (3.72-5.28); SEGMENTED NEUTROPHILS % (AUTO) 48.7 % (42-78); TOTAL CELLS COUNTED % (AUTO) 100 %; WHITE BLOOD COUNT 4.7 10^3/uL (4.0-10.5)
[2019-10-31 04:27] LABS: PHOSPHORUS 4.3 mg/dL (2.5-4.5)
[2019-10-31] MEDS: FUROSEMIDE INJ/PF 40 MG/4 ML SDV IV SCH ×2 (05:15→19:16)
[2019-10-31] MEDS: CARVEDILOL 6.25 MG TABLET PO SCH ×2 (05:15→18:58)
[2019-10-31] MEDS ORDERED: INSULIN GLARGINE,HUM.REC.ANLOG 1,000 UNIT/10 ML VIAL SUBCUT SCH ×2 (06:00→08:00)
--- NOTE | 2019-10-31 06:47 | XCELERA REPORT ---
[address] [address] Transthoracic Echocardiogram Report Name: MERI MCKOY Age: 64 yrs Gender: Female : 1955 Patient Status: Inpatient Patient Location: [address] [place] [address] Study Date: 10/30/2019 08:49 PM Height: 58 in Weight: 123 lb BSA: 1.5 m2 Procedure: A complete two-dimensional transthoracic echocardiogram was performed (2D, M-mode, spectral and color flow Doppler). The study was technically difficult with many images being suboptimal in quality. Images from the parasternal window were difficult to obtain and are suboptimal in quality. Reason For Study: CHF Ordering Physician: SUSI COLUNGA Performed By: Rain Cullen Interpretation Summary The left ventricle is mildly dilated. Left ventricular systolic function is moderate to severely reduced. The Ejection Fraction estimate is 30-35%. Doppler measurements suggest normal left ventricular diastolic function. There is moderate to severe global hypokinesis of the left ventricle. Mild LAE. Mild MR, mild TR. No prior studies for comparison. MMode/2D Measurements & Calculations RVDd: 1.9 cm LVIDd: 5.6 cm FS: 17.2 % Ao root diam: IVSd: 1.2 cm LVIDs: 4.7 cm EDV(Teich): 1.7 cm 155.4 ml Ao root area: LVPWd: 0.87 cm ESV(Teich): 2.2 cm2 100.3 ml LA dimension: EF(Teich): 35.5 % 4.1 cm LVLd ap4: 6.8 cm SV(MOD-sp4): EDV(MOD-sp4): 44.0 ml 101.0 ml LVLs ap4: 6.4 cm ESV(MOD-sp4): 57.0 ml EF(MOD-sp4): 43.6 % Doppler Measurements & Calculations MV E max jose alejandro: MV P1/2t max jose alejandro: Ao V2 max: LV V1 max P.9 cm/sec 126.9 cm/sec 154.1 cm/sec 3.6 mmHg MV A max jose alejandro: MV P1/2t: 49.3 msec Ao max P.5 mmHg LV V1 max: 61.7 cm/sec MVA(P1/2t): 4.5 cm2 95.3 cm/sec MV E/A: 1.4 MV dec slope: 754.2 cm/sec2 MV dec time: 0.17 sec PA V2 max: TR max jose alejandro: MV P1/2t-pr_phl: 83.0 cm/sec 204.3 cm/sec 49.3 msec PA max PG: TR max P.7 mmHg 2.8 mmHg Left Ventricle The left ventricle is mildly dilated. Left ventricular systolic function is moderate to severely reduced. The Ejection Fraction estimate is 30-35%. Doppler measurements suggest normal left ventricular diastolic function. There is moderate to severe global hypokinesis of the left ventricle. Right Ventricle The right ventricle is grossly normal size. The right ventricular systolic function is normal. Atria The right atrium is normal. The left atrium is mildly dilated. The interatrial septum is difficult to see, but appears to be grossly normal. Mitral Valve There is mild to moderate mitral leaflet calcification. The mitral valve chordae are thickened and/or calcified. There is no evidence of mitral valve prolapse. There is no mitral valve stenosis. There is a mild amount of mitral regurgitation. Aortic Valve The aortic valve is not well visualized secondary to technical limitations. There is no aortic valve stenosis. No aortic regurgitation is present. Tricuspid Valve The tricuspid valve is not well visualized, but is grossly normal. There is no tricuspid valve prolapse. There is no tricuspid stenosis. There is a mild amount of tricuspid regurgitation. Pulmonic Valve The pulmonic valve is not well seen, but is grossly normal. There is no vegetation on the pulmonic valve. There is no pulmonic valvular stenosis. There is no pulmonic valvular regurgitation. Great Vessels The aortic root is normal size. The inferior vena cava appeared normal. Effusions There is no pericardial effusion. There is no pleural effusion. : SUSI COLUNGA Antonio
[2019-10-31] MEDS: INSULIN LISPRO 100 UNIT/ML 3 ML VIAL SUBCUT SCH ×5 (08:00→22:05)
--- NOTE | 2019-10-31 09:57 | PDOC CONSULTATION ---
Consultation Consult Date: 10/31/19 Attending physician:: FAITH GOODMAN Provider Consulted: SUSI COLUNGA Consult reason:: HFrEF History of Present Illness Admission Date/PCP: 10/30/19 07:57 History of Present Illness: MERI MCKOY is a 64 year old female with past medical history significant for chronic systolic CHF that was diagnosed when she was in her mid 40s and apparently nonischemic in etiology as she states that she had several coronary angiograms without any significant stenosis, VSD status post repair, hypertension, diabetes on insulin who presented to the emergency room complaining of lower extremity edema, abdominal distention, dyspnea on exertion, PND and orthopnea for 2 weeks. Presents with a 2-week history of progressive bilateral lower extremity edema/abdominal distention/dry cough/dyspnea on exertion, came to ED for further evaluation. Her admission chest x-ray demonstrated small bibasilar effusions and interstitial edema, her admission proBNP was 2540 and her troponins have been indeterminate. Since admission she has put out a little bit over 1000 cc of fluid and feels much better. She has no cardiovascular complaints. Her echocardiogram yesterday demonstrated an ejection fraction between 30 and 35% among other findings. Her telemetry shows normal sinus rhythm with PVCs and PACs. Physical exam on 10/31/2019: GENERAL: Pleasant and conversational. Oriented x3 with normal mood. Not in acute distress. Well groomed and well developed. HEENT: Normocephalic, atraumatic. Pupils equal. Sclerae anicteric. Oropharynx moist. NECK: No JVD. No carotid bruits. LUNGS: Clear to auscultation bilaterally. Normal respiratory effort without the use of accessory muscles or intercostal retractions. CARDIOVASCULAR: Regular rate and rhythm, normal S1 and S2 without murmurs, rubs, or gallops. PMI not displaced. ABDOMEN: No masses or tenderness to palpation. No bruit. No splenomegaly or hepatomegaly. No abdominal aorta bruit noted. EXTREMITIES: No edema, no cyanosis, no clubbing. +2 pulses femoral and pedal pulses bilaterally. SKIN: No lesions or rashes. MUSCULOSKELETAL: No chest tenderness to palpation. NEUROLOGIC: Nonfocal. No gross sensory or motor deficits bilateral upper or lower extremities. Cardiac studies: Echocardiogram on 10/30/2019: -Mild left ventricular enlargement. -Moderate to severe global hypokinesis. -EF 30 to 35%. -Mild MR, mild TR. -Mild LAE. Past Medical History Cardiac Medical History: Reports: Congestive Heart Failure, Hypertension Denies: Myocardial Infarction Pulmonary Medical History: Denies: Asthma Neurological Medical History: Denies: Seizures Endocrine Medical History: Reports: Diabetes Mellitus Type 2 GI Medical History: Denies: Hepatitis, Hiatal Hernia Psychiatric Medical History: Denies: Depression Hematology: Denies: Anemia, Sickle Cell Disease Past Surgical History Past Surgical History: Denies: Amputation, Mastectomy, Pacemaker Social History Smoking Status: Never Smoker Electronic Cigarette use?: No Frequency of Alcohol Use: Rare Drugs: None Hx Prescription Drug Abuse: No - Advance Directive Resuscitation Status: Full Code Family History Family History: Reviewed & Not Pertinent Parental Family History Reviewed: Yes Children Family History Reviewed: Yes Sibling(s) Family History Reviewed.: Yes Medication/Allergy Home Medications: Amlodipine Besylate 5 mg PO DAILY 11/11/15 Aspirin [Aspirin EC] 81 mg PO DAILY 11/11/15 Carvedilol [Coreg 6.25 mg Tablet] 6.25 mg PO Q12 11/11/15 Lisinopril 20 mg PO DAILY 11/11/15 Insulin Glargine,Hum.rec.anlog [Lantus Insulin 100 Unit/1 ml 10 ml] 26 unit SQ QAM 06/23/18 Metformin HCl 1,000 mg PO BID 06/23/18 Insulin Aspart [Novolog Insulin (Aspart) 100 unit/mL] 0 units SQ .PERSLIDINGSCALE 10/30/19 Ropinirole HCl [Requip Xl] 2 mg PO QHS 10/30/19 Sitagliptin Phosphate [Januvia 50 mg Tablet] 100 mg PO DAILY 10/30/19 Allergies/Adverse Reactions: latex Allergy (Verified 10/30/19 07:20) Generalized Itching Penicillins Allergy (Verified 10/30/19 07:20) Hives Physical Exam Vital Signs: Temp Pulse Resp BP Pulse Ox 98.2 F 78 20 139/80 H 98 10/31/19 01:28 10/31/19 02:00 10/31/19 01:28 10/31/19 01:28 10/31/19 01:28 Intake & Output 10/29/19 10/30/19 10/31/19 06:59 06:59 06:59 Intake Total 390 Output Total 600 900 Balance -600 -510 Weight 59.874 kg 55.6 kg Results Laboratory Results: 10/31/19 03:46 10/30/19 10:46 10/30/19 10/31/19 10/31/19 10:46 03:46 03:46 WBC 4.7 RBC 4.58 Hgb 13.0 Hct 38.5 MCV 84 MCH 28.4 MCHC 33.8 RDW 14.0 Plt Count 181 Seg Neutrophils % 48.7 Sodium 136.2 L Potassium 3.7 Chloride 102 Carbon Dioxide 27 Anion Gap 7 BUN 9 Creatinine 0.51 L Est GFR ( Amer) > 60 Glucose 315 H Calcium 9.0 Phosphorus 4.3 Magnesium 2.2 TSH 10/31/19 03:46 WBC RBC Hgb Hct MCV MCH MCHC RDW Plt Count Seg Neutrophils % Sodium Potassium Chloride Carbon Dioxide Anion Gap BUN Creatinine Est GFR ( Amer) Glucose Calcium Phosphorus Magnesium TSH 2.55 10/30/19 10/30/19 10/30/19 01:05 01:05 05:25 Creatine Kinase 104 Troponin I 0.021 0.020 NT-Pro-B Natriuret Pep 2540 H Impressions: Chest X-Ray 10/29/19 23:30 IMPRESSION: Small bibasilar effusions. Mild interstitial edema copyright 2011 [employer]- All Rights Reserved 10/31/19 03:46 10/30/19 10:46 MCV 84 fl (80-97) 10/31/19 03:46 MCH 28.4 pg (27.0-33.4) 10/31/19 03:46 MCHC 33.8 g/dL (32.0-36.0) 10/31/19 03:46 RDW 14.0 % (11.5-14.0) 10/31/19 03:46 Seg Neutrophils % 48.7 % (42-78) 10/31/19 03:46 VBG pH 7.46 (7.30-7.42) H 10/30/19 02:49 VBG pCO2 38.4 mmHg (35-63) 10/30/19 02:49 VBG HCO3 26.6 mmol/L (20-32) 10/30/19 02:49 VBG Base Excess 2.8 mmol/L 10/30/19 02:49 Chloride 102 mmol/L (98-107) 10/30/19 10:46 Carbon Dioxide 27 mmol/L (22-30) 10/30/19 10:46 Anion Gap 7 (5-19) 10/30/19 10:46 Est GFR ( Amer) > 60 (>60) 10/30/19 10:46 Glucose 315 mg/dL (75-110) H 10/30/19 10:46 Calcium 9.0 mg/dL (8.4-10.2) 10/30/19 10:46 Phosphorus 4.3 mg/dL (2.5-4.5) 10/31/19 03:46 Magnesium 2.2 mg/dL (1.6-2.3) 10/31/19 03:46 Total Bilirubin 0.6 mg/dL (0.2-1.3) 10/30/19 01:05 AST 32 U/L (14-36) 10/30/19 01:05 Alkaline Phosphatase 114 U/L (38-126) 10/30/19 01:05 Total Protein 6.0 g/dL (6.3-8.2) L 10/30/19 01:05 Albumin 4.0 g/dL (3.5-5.0) 10/30/19 01:05 TSH 2.55 uIU/mL (0.47-4.68) 10/31/19 03:46 Urine Color STRAW 10/30/19 02:49 Urine Appearance CLEAR 10/30/19 02:49 Urine pH 6.0 (5.0-9.0) 10/30/19 02:49 Ur Specific [place] 1.008 10/30/19 02:49 Urine Protein NEGATIVE mg/dL (NEGATIVE) 10/30/19 02:49 Urine Glucose (UA) >=500 mg/dL (NEGATIVE) H 10/30/19 02:49 Urine Ketones NEGATIVE mg/dL (NEGATIVE) 10/30/19 02:49 Urine Blood NEGATIVE (NEGATIVE) 10/30/19 02:49 Urine Nitrite NEGATIVE (NEGATIVE) 10/30/19 02:49 Ur Leukocyte Esterase NEGATIVE (NEGATIVE) 10/30/19 02:49 Urine WBC (Auto) 1 /HPF 10/30/19 02:49 Urine RBC (Auto) 1 /HPF 10/30/19 02:49 10/30/19 10/30/19 10/30/19 01:05 01:05 05:25 Creatine Kinase 104 Troponin I 0.021 0.020 NT-Pro-B Natriuret Pep 2540 H Current Medication List Generic Name Dose Route Start Last Admin Trade Name Fretiffany PRN Reason Stop Dose Admin Acetaminophen 650 mg 10/30/19 10:02 Tylenol 325 Mg Tablet PO 11/29/19 10:01 Q4HP PRN pain or fever Amlodipine Besylate 5 mg 10/30/19 16:15 10/30/19 17:14 Norvasc 5 Mg Tablet PO 11/29/19 16:14 5 mg DAILY ASHER Administration Aspirin 81 mg 10/30/19 22:00 10/30/19 21:39 Ecotrin 81 Mg Ec Tablet PO 11/29/19 21:59 81 mg QHS ASHER Administration Carvedilol 6.25 mg 10/30/19 18:00 10/31/19 05:15 Coreg 6.25 Mg Tablet PO 11/29/19 17:59 6.25 mg Q12A ASHER Administration Dextrose 12.5 gm 10/30/19 16:30 Dextrose Inj 50% Syringe (25 Gm/50 Ml) IV 11/29/19 16:29 PRN PRN FOR BG 50-69 IN ALERT PATIENT Protocol Dextrose 25 gm 10/30/19 16:30 Dextrose Inj 50% Syringe (25 Gm/50 Ml) IV 11/29/19 16:29 PRN PRN Protocol Docusate Sodium 100 mg 10/30/19 10:15 10/30/19 11:56 Colace Udc 100 Mg/10 Ml Oral Soln PO 11/29/19 10:14 100 mg Q2D ASHER Administration Enoxaparin Sodium 40 mg 10/31/19 10:00 Lovenox Inj 40 Mg/0.4 Ml Disp.Syrin SUBCUT 11/30/19 09:59 DAILY ASHER Furosemide 40 mg 10/30/19 18:00 10/31/19 05:15 Lasix Inj/Pf 40 Mg/4 Ml Sdv IV 11/29/19 17:59 40 mg Q12A ASHER Administration Glucagon 1 mg 10/30/19 16:30 Glucagen Inj 1 Mg Vial IM 11/29/19 16:29 PRN PRN EVALUATE FOR BG < 70 Protocol Glucose 15 gm 10/30/19 16:30 Glutose 40% Gel 15 Gm Tube PO 11/29/19 16:29 PRN PRN FOR BG 50-69 IN ALERT PATIENT Protocol Glucose 30 gm 10/30/19 16:30 Glutose 40% Gel 15 Gm Tube PO 11/29/19 16:29 PRN PRN FOR BG < 50 IN ALERT PATIENT Protocol Insulin Glargine 26 unit 10/31/19 08:00 Lantus Insulin 100 Unit/1 Ml 10 Ml SUBCUT 11/30/19 05:59 QAM [facility] Insulin Human Lispro 0 - 12 unit 10/30/19 17:00 10/30/19 21:38 Humalog Insulin 100 Unit/1 Ml 3 Ml Vial SUBCUT 11/29/19 16:59 4 unit ACHS [facility] Administration Protocol Lisinopril 20 mg 10/31/19 10:00 Prinivil 10 Mg Tablet PO 11/30/19 09:59 DAILY [facility] Ondansetron HCl 4 mg 10/30/19 10:02 Zofran Odt 4 Mg Tablet PO 11/29/19 10:01 Q4HP PRN FOR NAUSEA/VOMITING Ondansetron HCl 4 mg 10/30/19 10:02 Zofran Inj/Pf 4 Mg/2 Ml Sdv IV 11/29/19 10:01 Q4HP PRN FOR NAUSEA/VOMITING Patient Own Medication 2 mg 10/30/19 22:00 Ropinirole Hcl [Requip Xl] PO 11/29/19 21:59 .QHS [facility] Sitagliptin Phosphate 100 mg 10/30/19 16:15 10/30/19 17:14 Januvia 50 Mg Tablet PO 11/29/19 16:14 100 mg DAILY [facility] Administration Discontinued Medications Generic Name Dose Route Start Last Admin Trade Name Freq PRN Reason Stop Dose Admin Acetaminophen 650 mg 10/29/19 23:32 10/30/19 01:22 Tylenol 325 Mg Tablet PO 10/29/19 23:33 Not Given NOW ONE Aspirin 81 mg 10/30/19 17:00 10/30/19 17:49 Ecotrin 81 Mg Ec Tablet PO 11/29/19 16:59 Not Given DAILY [facility] Furosemide 40 mg 10/30/19 01:04 10/30/19 01:24 Lasix Inj/Pf 40 Mg/4 Ml Sdv IV 10/30/19 01:05 40 mg NOW ONE Administration Insulin Glargine 26 unit 10/30/19 16:15 Lantus Insulin 100 Unit/1 Ml 10 Ml SUBCUT 11/29/19 16:14 QAM [facility] Insulin Glargine 26 unit 10/31/19 06:00 Lantus Insulin 100 Unit/1 Ml 10 Ml SUBCUT 11/30/19 05:59 Q6AM [facility] Insulin Human Lispro 0 - 12 unit 10/30/19 22:00 Humalog Insulin 100 Unit/1 Ml 3 Ml Vial SUBCUT 11/29/19 21:59 ACHS [facility] Protocol Insulin Human Regular 5 unit 10/30/19 02:31 10/30/19 02:41 Humulin R (Pyxis) Insulin 100 Unit/Ml 3ml SUBCUT 10/30/19 02:32 5 unit NOW ONE Administration Assessment & Plan - Diagnosis (1) Heart failure with reduced ejection fraction Plan: Appears to be secondary to a nonischemic dilated cardiomyopathy by history however she will need at least noninvasive ischemic assessment as she will need a defibrillator due to her low ejection fraction therefore we will plan to proceed with nuclear stress test once she is not fluid overloaded. Her fluid balance is -1 L so far but I believe she needs to be diuresed a little bit more. I will also optimize her medical management as depicted below. Recommendations: -Discontinue Norvasc. -Discontinue lisinopril. -Increase Coreg to 12.5 mg twice daily. -Start Entresto 24 mg / 26 mg p.o. twice daily 36 hours after last dose of lisinopril. -Continue diuresis. -Restrict fluid intake to 1500 cc daily. -Low sodium diet, less than 1500 mg daily. -Strict intake and output. -Daily BMP and magnesium and replace electrolytes as necessary. -Pharmacological nuclear stress test when the patient is not fluid overloaded any longer in preparation for ICD. -We will continue to follow with you. (2) HTN (hypertension) Is this a current diagnosis for this admission?: Yes Plan: Her blood pressure is above goal. We will increase Coreg and start Entresto as described above and will continue to follow her blood pressure to reach a goal of 130/80 or lower. (3) T2DM (type 2 diabetes mellitus) Qualifiers: Diabetes mellitus custodial insulin use: with termite control service representative use Diabetes karina litus complication status: without complication Qualified Code(s): E11.9 - Type 2 diabetes mellitus without complications; Z79.4 - director long term care (current) use of insulin Is this a current diagnosis for this admission?: Yes Plan: Management per primary team.
[2019-10-31] MEDS ORDERED: LISINOPRIL 10 MG TABLET PO SCH (10:00)
[2019-10-31] MEDS ORDERED: (PENDING PHARMACY ID) (Lisinopril [Lisinopril] 20 MG) PO SCH (10:00)
[2019-10-31] MEDS: AMLODIPINE BESYLATE 5 MG TABLET PO SCH (10:30)
[2019-10-31] MEDS: SITAGLIPTIN PHOSPHATE 50 MG TABLET PO SCH (10:31)
[2019-10-31] MEDS: ENOXAPARIN SODIUM INJ 40 MG/0.4 ML DISP.SYRIN SUBCUT SCH (10:32)
[2019-10-31] MEDS ORDERED: INSULIN GLARGINE,HUM.REC.ANLOG 1,000 UNIT/10 ML VIAL (PYX) SUBCUT ONE (11:00)
[2019-10-31] MEDS: METFORMIN HCL 500 MG TABLET PO SCH (19:00)
--- NOTE | 2019-10-31 19:04 | PDOC PROGRESS REPORT ---
Subjective Subjective:: Patient moved for acute on chronic systolic heart failure, started on IV Lasix for diuresis with good effect on her breathing and improvement in her lower extremity edema. Echocardiogram reviewed and showed EF of 30 to 35%. Cardiology consulted and they are arranging patient to get a LifeVest at discharge she will need planning for AICD in the near future as well. Blood sugar significantly elevated and her Lantus was restarted. I also started her on mealtime insulin as her A1c is 8.7 which is not at goal. Urine output has been approximately 2 L since admission. Patient states her symptoms are significantly improved and she has no new complaints today. Cardiology states she will likely be ready for discharge on Tuesday. Reason For Visit: ACUTE DIASTOLIC CHG EXACERBATION,VOLUME OVERLOAD, Physical Exam Vital Signs: Temp Pulse Resp BP Pulse Ox 98.3 F 79 20 142/60 H 97 10/31/19 16:00 10/31/19 16:00 10/31/19 16:00 10/31/19 16:00 10/31/19 16:00 Intake & Output 10/30/19 10/31/19 11/01/19 06:59 06:59 06:59 Intake Total 390 Output Total 600 1400 Balance -600 -1010 Weight 59.874 kg 55.6 kg Exam: General appearance: PRESENT: no acute distress, well-developed, well-nourished, states she feels much better today Head exam: PRESENT: atraumatic, normocephalic Eye exam: PRESENT: conjunctiva pink Mouth exam: PRESENT: moist Respiratory exam: unlabored. ABSENT: rhonchi, wheezes Cardiovascular exam: PRESENT: RRR. ABSENT: diastolic murmur, rubs, systolic murmur GI/Abdominal exam: PRESENT: normal bowel sounds, soft. ABSENT: distended, guarding, mass, organolmegaly, rebound, tenderness Extremities exam: PRESENT: Trace pedal edema, trace edema Neurological exam: PRESENT: alert, awake, oriented to person, oriented to place, oriented to time, oriented to situation Psychiatric exam: PRESENT: appropriate affect, normal mood Skin exam: PRESENT: dry, intact, warm Results Laboratory Results: 10/31/19 03:46 10/30/19 10:46 10/31/19 10/31/19 10/31/19 03:46 03:46 03:46 WBC 4.7 RBC 4.58 Hgb 13.0 Hct 38.5 MCV 84 MCH 28.4 MCHC 33.8 RDW 14.0 Plt Count 181 Seg Neutrophils % 48.7 Phosphorus 4.3 Magnesium 2.2 TSH 2.55 10/30/19 02:49 Clean Catch Midstream Urine Culture - Final Mixed Urogenital Neris 10/30/19 10/30/19 10/30/19 01:05 01:05 05:25 Creatine Kinase 104 Troponin I 0.021 0.020 NT-Pro-B Natriuret Pep 2540 H Impressions: Chest X-Ray 10/29/19 23:30 IMPRESSION: Small bibasilar effusions. Mild interstitial edema copyright 2010 [employer]- All Rights Reserved Assessment and Plan - Diagnosis (1) Congestive heart failure Qualifiers: Heart failure type: systolic Heart failure chronicity: acute Qualified Code(s): I50.21 - Acute systolic (congestive) heart failure Is this a current diagnosis for this admission?: Yes Plan: Per patient this is acute on chronic BNP 2500, troponin very mildly elevated, trending Echocardiogram showed EF 30 to 35% Cardiology consulted: Arranging LifeVest for patient and planning AICD placement in the near future after discharge IV Lasix Continue home cardiac medications (2) T2DM (type 2 diabetes mellitus) Qualifiers: Diabetes mellitus long-term insulin use: with predatory animal exterminator use Diabetes mellitus complication status: without complication Qualified Code(s): E11.9 - Type 2 diabetes mellitus without complications; Z79.4 - group home (current) use of insulin Is this a current diagnosis for this admission?: Yes Plan: Restarted home Lantus, sliding scale insulin, Accu-Cheks Trend BMP Uncontrolled, added mealtime insulin (3) Orthopnea Is this a current diagnosis for this admission?: Yes (4) HTN (hypertension) Is this a current diagnosis for this admission?: Yes (5) S/P VSD repair Is this a current diagnosis for this admission?: Yes - Time Time Spent with patient: 25-34 minutes Medications reviewed and adjusted accordingly: Yes Anticipated Discharge Disposition: Home, Self Care Anticipated Discharge Timeframe: within 48 hours - Inpatient Certification Based on my medical assessment, after consideration of the patient's comorbidities, presenting symptoms, or acuity I expect that the services needed warrant INPATIENT care.: Yes I certify that my determination is in accordance with my understanding of Medicare's requirements for reasonable and necessary INPATIENT services [42 CFR 412.3e].: Yes Medical Necessity: Significant Comorbidiites Make Outpatient Treatment Too Risky, Need Close Monitoring Due to Risk of Patient Decompensation, Risk of Complication if Not Cared For in Hospital, Risk of Diagnosis Which Will Require Inpatient Eval/Care/Monitoring
[2019-10-31] MEDS: ASPIRIN 81 MG TABLET, ENT COATED PO SCH (22:08)
[2019-11-01] MEDS: FUROSEMIDE INJ/PF 40 MG/4 ML SDV IV SCH (05:49)
[2019-11-01] MEDS: CARVEDILOL 6.25 MG TABLET PO SCH (05:49)
--- NOTE | 2019-11-01 08:17 | PDOC PROGRESS REPORT ---
Subjective Progress Note for:: 11/01/19 Subjective:: MERI MCKOY is a 64 year old female with past medical history significant for chronic systolic CHF that was diagnosed when she was in her mid 40s and apparently nonischemic in etiology as she states that she had several coronary angiograms without any significant stenosis, VSD status post repair, hypertension, diabetes on insulin who presented to the emergency room complaining of lower extremity edema, abdominal distention, dyspnea on exertion, PND and orthopnea for 2 weeks. Presents with a 2-week history of progressive bilateral lower extremity edema/abdominal distention/dry cough/dyspnea on exertion, came to ED for further evaluation. Her admission chest x-ray demonstrated small bibasilar effusions and interstitial edema, her admission proBNP was 2540 and her troponins have been indeterminate. Since admission she has put out a little bit over 1000 cc of fluid and feels much better. She has no cardiovascular complaints. Her echocardiogram yesterday demonstrated an ejection fraction between 30 and 35% among other findings. Her telemetry shows normal sinus rhythm with PVCs and PACs. 11/01/2019: The patient had an uneventful night and continues to have a negative fluid balance, unfortunately her urine output has not been recorded this morning yet. Her telemetry shows normal sinus rhythm without ventricular dysrhythmias. She feels 100% better and without cardiac complaints. Unfortunately, my recommendations were not followed yesterday and she continues to be hypertensive. Results of her BMP are still pending. Physical exam on 11/01/2019: GENERAL: Pleasant and conversational. Oriented x3 with normal mood. Not in acute distress. Well groomed and well developed. HEENT: Normocephalic, atraumatic. Pupils equal. Sclerae anicteric. Oropharynx moist. NECK: No JVD. No carotid bruits. LUNGS: Clear to auscultation bilaterally. Normal respiratory effort without the use of accessory muscles or intercostal retractions. CARDIOVASCULAR: Regular rate and rhythm, normal S1 and S2 without murmurs, rubs, or gallops. PMI not displaced. ABDOMEN: No masses or tenderness to palpation. No bruit. No splenomegaly or hepatomegaly. No abdominal aorta bruit noted. EXTREMITIES: No edema, no cyanosis, no clubbing. +2 pulses femoral and pedal pulses bilaterally. SKIN: No lesions or rashes. MUSCULOSKELETAL: No chest tenderness to palpation. NEUROLOGIC: Nonfocal. No gross sensory or motor deficits bilateral upper or lower extremities. Cardiac studies: Echocardiogram on 10/30/2019: -Mild left ventricular enlargement. -Moderate to severe global hypokinesis. -EF 30 to 35%. -Mild MR, mild TR. -Mild LAE. Reason For Visit: ACUTE DIASTOLIC CHG EXACERBATION,VOLUME OVERLOAD, Physical Exam Vital Signs: Temp Pulse Resp BP Pulse Ox 98.5 F 75 18 161/69 H 97 11/01/19 03:20 11/01/19 03:20 11/01/19 03:20 11/01/19 03:20 11/01/19 03:20 Intake & Output 10/30/19 10/31/19 11/01/19 06:59 06:59 06:59 Intake Total 390 420 Output Total 600 1400 Balance -600 -1010 420 Weight 59.874 kg 55.6 kg 54.6 kg Results Laboratory Results: 10/31/19 03:46 10/30/19 10:46 10/30/19 02:49 Clean Catch Midstream Urine Culture - Final Mixed Urogenital Neris 10/30/19 10/30/19 10/30/19 01:05 01:05 05:25 Creatine Kinase 104 Troponin I 0.021 0.020 NT-Pro-B Natriuret Pep 2540 H Impressions: Chest X-Ray 10/29/19 23:30 IMPRESSION: Small bibasilar effusions. Mild interstitial edema copyright 2011 [employer]- All Rights Reserved 10/31/19 03:46 10/30/19 10:46 MCV 84 fl (80-97) 10/31/19 03:46 MCH 28.4 pg (27.0-33.4) 10/31/19 03:46 MCHC 33.8 g/dL (32.0-36.0) 10/31/19 03:46 RDW 14.0 % (11.5-14.0) 10/31/19 03:46 Seg Neutrophils % 48.7 % (42-78) 10/31/19 03:46 VBG pH 7.46 (7.30-7.42) H 10/30/19 02:49 VBG pCO2 38.4 mmHg (35-63) 10/30/19 02:49 VBG HCO3 26.6 mmol/L (20-32) 10/30/19 02:49 VBG Base Excess 2.8 mmol/L 10/30/19 02:49 Chloride 102 mmol/L (98-107) 10/30/19 10:46 Carbon Dioxide 27 mmol/L (22-30) 10/30/19 10:46 Anion Gap 7 (5-19) 10/30/19 10:46 Est GFR ( Amer) > 60 (>60) 10/30/19 10:46 Glucose 315 mg/dL (75-110) H 10/30/19 10:46 Calcium 9.0 mg/dL (8.4-10.2) 10/30/19 10:46 Phosphorus 4.3 mg/dL (2.5-4.5) 10/31/19 03:46 Magnesium 2.2 mg/dL (1.6-2.3) 10/31/19 03:46 Total Bilirubin 0.6 mg/dL (0.2-1.3) 10/30/19 01:05 AST 32 U/L (14-36) 10/30/19 01:05 Alkaline Phosphatase 114 U/L (38-126) 10/30/19 01:05 Total Protein 6.0 g/dL (6.3-8.2) L 10/30/19 01:05 Albumin 4.0 g/dL (3.5-5.0) 10/30/19 01:05 TSH 2.55 uIU/mL (0.47-4.68) 10/31/19 03:46 Urine Color STRAW 10/30/19 02:49 Urine Appearance CLEAR 10/30/19 02:49 Urine pH 6.0 (5.0-9.0) 10/30/19 02:49 Ur Specific [place] 1.008 10/30/19 02:49 Urine Protein NEGATIVE mg/dL (NEGATIVE) 10/30/19 02:49 Urine Glucose (UA) >=500 mg/dL (NEGATIVE) H 10/30/19 02:49 Urine Ketones NEGATIVE mg/dL (NEGATIVE) 10/30/19 02:49 Urine Blood NEGATIVE (NEGATIVE) 10/30/19 02:49 Urine Nitrite NEGATIVE (NEGATIVE) 10/30/19 02:49 Ur Leukocyte Esterase NEGATIVE (NEGATIVE) 10/30/19 02:49 Urine WBC (Auto) 1 /HPF 09/01/20 02:49 Urine RBC (Auto) 1 /HPF 10/30/19 02:49 10/30/19 02:49 Clean Catch Midstream Urine Culture - Final Mixed Urogenital Neris 10/30/19 10/30/19 10/30/19 01:05 01:05 05:25 Creatine Kinase 104 Troponin I 0.021 0.020 NT-Pro-B Natriuret Pep 2540 H Current Medication List Generic Name Dose Route Start Last Admin Trade Name Freq PRN Reason Stop Dose Admin Acetaminophen 650 mg 10/30/19 10:02 Tylenol 325 Mg Tablet PO 11/29/19 10:01 Q4HP PRN pain or fever Amlodipine Besylate 5 mg 10/30/19 16:15 10/31/19 10:30 Norvasc 5 Mg Tablet PO 11/29/19 16:14 5 mg DAILY ASHER Administration Aspirin 81 mg 10/30/19 22:00 10/31/19 22:08 Ecotrin 81 Mg Ec Tablet PO 11/29/19 21:59 81 mg QHS ASHER Administration Carvedilol 6.25 mg 10/30/19 18:00 11/01/19 05:49 Coreg 6.25 Mg Tablet PO 11/29/19 17:59 6.25 mg Q12A ASHER Administration Dextrose 12.5 gm 10/30/19 16:30 Dextrose Inj 50% Syringe (25 Gm/50 Ml) IV 11/29/19 16:29 PRN PRN FOR BG 50-69 IN ALERT PATIENT Protocol Dextrose 25 gm 10/30/19 16:30 Dextrose Inj 50% Syringe (25 Gm/50 Ml) IV 11/29/19 16:29 PRN PRN Protocol Docusate Sodium 100 mg 10/30/19 10:15 10/30/19 11:56 Colace Udc 100 Mg/10 Ml Oral Soln PO 11/29/19 10:14 100 mg Q2D ASHER Administration Enoxaparin Sodium 40 mg 10/31/19 10:00 10/31/19 10:32 Lovenox Inj 40 Mg/0.4 Ml Disp.Syrin SUBCUT 11/30/19 09:59 40 mg DAILY ASHER Administration Furosemide 40 mg 10/30/19 18:00 11/01/19 05:49 Lasix Inj/Pf 40 Mg/4 Ml Sdv IV 11/29/19 17:59 40 mg Q12A ASHER Administration Glucagon 1 mg 10/30/19 16:30 Glucagen Inj 1 Mg Vial IM 11/29/19 16:29 PRN PRN EVALUATE FOR BG < 70 Protocol Glucose 15 gm 10/30/19 16:30 Glutose 40% Gel 15 Gm Tube PO 11/29/19 16:29 PRN PRN FOR BG 50-69 IN ALERT PATIENT Protocol Glucose 30 gm 10/30/19 16:30 Glutose 40% Gel 15 Gm Tube PO 11/29/19 16:29 PRN PRN FOR BG < 50 IN ALERT PATIENT Protocol Insulin Glargine 26 unit 11/01/19 08:00 Lantus Insulin 100 Unit/1 Ml 10 Ml SUBCUT 12/01/19 07:59 QAM ASHER Insulin Human Lispro 0 - 12 unit 10/30/19 17:00 10/31/19 22:05 Humalog Insulin 100 Unit/1 Ml 3 Ml Vial SUBCUT 11/29/19 16:59 2 unit ACHS ASHER Administration Protocol Insulin Human Lispro 5 unit 10/31/19 17:00 10/31/19 18:56 Humalog Insulin 100 Unit/1 Ml 3 Ml Vial SUBCUT 11/30/19 16:59 5 unit AC ASHER Administration Lisinopril 20 mg 10/31/19 10:00 10/31/19 10:31 Prinivil 10 Mg Tablet PO 11/30/19 09:59 20 mg DAILY ASHER Administration Metformin HCl 500 mg 10/31/19 17:00 10/31/19 19:00 Glucophage 500 Mg Tablet PO 11/30/19 16:59 500 mg BIDACBS ASHER Administration Ondansetron HCl 4 mg 10/30/19 10:02 Zofran Odt 4 Mg Tablet PO 11/29/19 10:01 Q4HP PRN FOR NAUSEA/VOMITING Ondansetron HCl 4 mg 10/30/19 10:02 Zofran Inj/Pf 4 Mg/2 Ml Sdv IV 11/29/19 10:01 Q4HP PRN FOR NAUSEA/VOMITING Patient Own Medication 2 mg 10/30/19 22:00 Ropinirole Hcl [Requip Xl] PO 11/29/19 21:59 .QHS ASHER Sitagliptin Phosphate 100 mg 10/30/19 16:15 10/31/19 10:31 Januvia 50 Mg Tablet PO 11/29/19 16:14 100 mg DAILY ASHER Administration Discontinued Medications Generic Name Dose Route Start Last Admin Trade Name Ashley PRN Reason Stop Dose Admin Acetaminophen 650 mg 10/29/19 23:32 10/30/19 01:22 Tylenol 325 Mg Tablet PO 10/29/19 23:33 Not Given NOW ONE Aspirin 81 mg 10/30/19 17:00 10/30/19 17:49 Ecotrin 81 Mg Ec Tablet PO 11/29/19 16:59 Not Given DAILY [facility] Furosemide 40 mg 10/30/19 01:04 10/30/19 01:24 Lasix Inj/Pf 40 Mg/4 Ml Sdv IV 10/30/19 01:05 40 mg NOW ONE Administration Insulin Glargine 26 unit 10/30/19 16:15 Lantus Insulin 100 Unit/1 Ml 10 Ml SUBCUT 11/29/19 16:14 QAM [facility] Insulin Glargine 26 unit 10/31/19 06:00 Lantus Insulin 100 Unit/1 Ml 10 Ml SUBCUT 11/30/19 05:59 Q6AM [facility] Insulin Glargine 26 unit 10/31/19 08:00 Lantus Insulin 100 Unit/1 Ml 10 Ml SUBCUT 11/30/19 05:59 QAM [facility] Insulin Glargine 26 unit 10/31/19 11:00 10/31/19 10:35 Lantus (Pyxis) Insulin 100 Unit/1 Ml 10 Ml SUBCUT 10/31/19 11:01 26 unit NOW ONE Administration Insulin Human Lispro 0 - 12 unit 10/30/19 22:00 Humalog Insulin 100 Unit/1 Ml 3 Ml Vial SUBCUT 11/29/19 21:59 ACHS [facility] Protocol Insulin Human Regular 5 unit 10/30/19 02:31 10/30/19 02:41 Humulin R (Pyxis) Insulin 100 Unit/Ml 3ml SUBCUT 10/30/19 02:32 5 unit NOW ONE Administration Assessment & Plan - Diagnosis (1) Heart failure with reduced ejection fraction Plan: Appears to be secondary to a nonischemic dilated cardiomyopathy by history however she will need at least noninvasive ischemic assessment as she will need a defibrillator due to her low ejection fraction therefore we will plan to proceed with nuclear stress test once she is not fluid overloaded. She feels 100% better and there is no evidence of fluid overload on exam today. Her telemetry stable and without complex dysrhythmias. Unfortunately my recommendations were not followed yesterday therefore I just wrote new orders as depicted below. She continues to be hypertensive. Recommendations: -Discontinue Norvasc. -Increase lisinopril to 40 mg daily. -Increase Coreg to 12.5 mg twice daily. -Plan to switch lisinopril to Entresto in the outpatient setting. -Discontinue IV Lasix. -Start Lasix 40 mg p.o. -Restrict fluid intake to 1500 cc daily. -Low sodium diet, less than 1500 mg daily. -Strict intake and output. -Daily BMP and magnesium and replace electrolytes as necessary. -proBNP tomorrow morning. -Pharmacological nuclear stress test in the outpatient setting in preparation for ICD. (2) HTN (hypertension) Is this a current diagnosis for this admission?: Yes Plan: Her blood pressure is above goal. Please see above for recommendations. (3) T2DM (type 2 diabetes mellitus) Qualifiers: Diabetes mellitus intermediate insulin use: with termite exterminator use Diabetes mellitus complication status: without complication Qualified Code(s): E11.9 - Type 2 diabetes mellitus without complications; Z79.4 - intermodal dispatcher (current) use of insulin Is this a current diagnosis for this admission?: Yes Plan: Management per primary team.
[2019-11-01] MEDS: METFORMIN HCL 500 MG TABLET PO SCH ×2 (08:52→18:29)
[2019-11-01] MEDS: INSULIN LISPRO 100 UNIT/ML 3 ML VIAL SUBCUT SCH ×6 (08:52→21:42)
[2019-11-01] MEDS: INSULIN GLARGINE,HUM.REC.ANLOG 1,000 UNIT/10 ML VIAL SUBCUT SCH (08:59)
[2019-11-01] MEDS ORDERED: INSULIN GLARGINE,HUM.REC.ANLOG 1,000 UNIT/10 ML VIAL (PYX) SUBCUT ONE (09:15)
[2019-11-01] MEDS: DOCUSATE SODIUM 100 MG/10 ML UDC PO SCH ×2 (09:39→09:56)
[2019-11-01] MEDS: SITAGLIPTIN PHOSPHATE 50 MG TABLET PO SCH (09:39)
[2019-11-01] MEDS: CARVEDILOL 12.5 MG TABLET PO SCH ×2 (09:40→21:42)
[2019-11-01] MEDS: ENOXAPARIN SODIUM INJ 40 MG/0.4 ML DISP.SYRIN SUBCUT SCH ×2 (09:43→09:56)
[2019-11-01] MEDS ORDERED: LISINOPRIL 10 MG TABLET PO SCH (10:00)
[2019-11-01 10:16] LABS: ANION GAP 9 (5-19); BLOOD UREA NITROGEN 17 mg/dL (7-20); CALCIUM 8.7 mg/dL (8.4-10.2); CARBON DIOXIDE 25 mmol/L (22-30); CHLORIDE 99 mmol/L (98-107); GLUCOSE 389 mg/dL (75-110); POTASSIUM 4.1 mmol/L (3.6-5.0)
[2019-11-01] MEDS ORDERED: DOCUSATE SODIUM 100 MG CAPSULE PO SCH (11:00)
--- NOTE | 2019-11-01 18:36 | PDOC PROGRESS REPORT ---
Subjective Subjective:: Patient moved for acute on chronic systolic heart failure, started on IV Lasix for diuresis with good effect on her breathing and improvement in her lower extremity edema. Echocardiogram reviewed and showed EF of 30 to 35%. Cardiology consulted and they are arranging patient to get a LifeVest at discharge she will need planning for AICD in the near future as well. Blood sugar significantly elevated and her Lantus was restarted. I also started her on mealtime insulin as her A1c is 8.7 which is not at goal. Urine output has been approximately 2 L since admission. Patient states her symptoms are significantly improved and she has no new complaints today. Cardiology states she will likely be ready for discharge on Tuesday. 11/01/2019 Patient still diuresing well on current regimen. I discussed the case in detail with Dr. Conner today and he would like the patient to be transitioned to [facility] outpatient rather than the hospital now. We also discussed possibility of patient having a stress test and later in the day he decided this can be done outpatient as well. Urine culture is mixed with patient has no urinary symptoms and her UA was not infected in the first place. She had a drop in her blood sugar today and I have adjusted her insulin regimen to account for this. She likely only needs breakfast and lunch short acting insulin in addition to her Lantus and her metformin. She has no new complaints today. Reason For Visit: ACUTE DIASTOLIC CHG EXACERBATION,VOLUME OVERLOAD, Physical Exam Vital Signs: Temp Pulse Resp BP Pulse Ox 98.4 F 75 18 142/71 H 100 11/01/19 15:29 11/01/19 15:29 11/01/19 15:29 11/01/19 15:29 11/01/19 15:29 Intake & Output 10/31/19 11/01/19 11/02/19 06:59 06:59 06:59 Intake Total 159 042 4076 Output Total 1400 1000 Balance -1010 420 120 Weight 55.6 kg 54.6 kg Exam: General appearance: PRESENT: no acute distress, well-developed, well-nourished, in good spirits and states she feels better today Head exam: PRESENT: atraumatic, normocephalic Eye exam: PRESENT: conjunctiva pink Mouth exam: PRESENT: moist Respiratory exam: unlabored. ABSENT: rhonchi, wheezes Cardiovascular exam: PRESENT: RRR. ABSENT: diastolic murmur, rubs, systolic murmur GI/Abdominal exam: PRESENT: normal bowel sounds, soft. ABSENT: distended, guar ding, mass, organolmegaly, rebound, tenderness Extremities exam: PRESENT: Trace pedal edema, trace edema Neurological exam: PRESENT: alert, awake, oriented to person, oriented to place, oriented to time, oriented to situation Psychiatric exam: PRESENT: appropriate affect, normal mood Skin exam: PRESENT: dry, intact, warm Results Laboratory Results: 10/31/19 03:46 11/01/19 09:28 11/01/19 09:28 Sodium 132.8 L Potassium 4.1 Chloride 99 Carbon Dioxide 25 Anion Gap 9 BUN 17 Creatinine 0.56 Est GFR ( Amer) > 60 Glucose 389 H Calcium 8.7 Magnesium 2.0 10/30/19 10/30/19 10/30/19 01:05 01:05 05:25 Creatine Kinase 104 Troponin I 0.021 0.020 NT-Pro-B Natriuret Pep 2540 H Impressions: Chest X-Ray 10/29/19 23:30 IMPRESSION: Small bibasilar effusions. Mild interstitial edema copyright 2010 [employer]- All Rights Reserved Assessment and Plan - Diagnosis (1) Congestive heart failure Qualifiers: Heart failure type: systolic Heart failure chronicity: acute Qualified Code(s): I50.21 - Acute systolic (congestive) heart failure Is this a current diagnosis for this admission?: Yes Plan: Per patient this is acute on chronic BNP 2500, troponin very mildly elevated, trending Echocardiogram showed EF 30 to 35% Cardiology consulted: Arranging LifeVest for patient and planning AICD placement in the near future after discharge IV Lasix Continue home cardiac medications 11/01/2019 Cardiology planning outpatient stress test, they are also planning to transition the patient to Entresto outpatient as well Increase lisinopril Will need LifeVest arranged prior to discharge, AICD evaluation later on (2) T2DM (type 2 diabetes mellitus) Qualifiers: Diabetes mellitus computer terminal operator insulin use: with computer terminal operator use Diabetes mellitus complication status: without complication Qualified Code(s): E11.9 - Type 2 diabetes mellitus without complications; Z79.4 - vermin exterminator (current) use of insulin Is this a current diagnosis for this admission?: Yes Plan: Restarted home Lantus, sliding scale insulin, Accu-Cheks Trend BMP Uncontrolled, added mealtime insulin Seems to have intermittent low blood sugars late in the day, changed mealtime insulin to breakfast and lunch only, continued Lantus and metformin (3) Orthopnea Is this a current diagnosis for this admission?: Yes (4) HTN (hypertension) Is this a current diagnosis for this admission?: Yes (5) S/P VSD repair Is this a current diagnosis for this admission?: Yes - Time Time Spent with patient: 25-34 minutes Medications reviewed and adjusted accordingly: Yes Anticipated Discharge Disposition: Home, Self Care Anticipated Discharge Timeframe: within 48 hours - Inpatient Certification Based on my medical assessment, after consideration of the patient's comorbidities, presenting symptoms, or acuity I expect that the services needed warrant INPATIENT care.: Yes I certify that my determination is in accordance with my understanding of Medicare's requirements for reasonable and necessary INPATIENT services [42 CFR 412.3e].: Yes Medical Necessity: Significant Comorbidiites Make Outpatient Treatment Too Risky, Need Close Monitoring Due to Risk of Patient Decompensation, Risk of Complication if Not Cared For in Hospital, Risk of Diagnosis Which Will Require Inpatient Eval/Care/Monitoring
[2019-11-01] MEDS: ASPIRIN 81 MG TABLET, ENT COATED PO SCH (21:42)
[2019-11-02 08:14] LABS: ABSOLUTE EOSINOPHILS # (AUTO) 0.3 10^3/uL (0.0-0.6); ABSOLUTE LYMPHOCYTES (AUTO) 1.5 10^3/uL (0.5-4.7); ABSOLUTE MONOCYTES (AUTO) 0.4 10^3/uL (0.1-1.4); ABSOLUTE NEUT (AUTO) 1.8 10^3/uL (1.7-8.2); BASOPHILS % (AUTO) 0.5 % (0-2); EOSINOPHILS % (AUTO) 6.6 % (0-6); HEMATOCRIT 37.5 % (36.0-47.0); HEMOGLOBIN 12.6 g/dL (12.0-15.5); LYMPHOCYTES % (AUTO) 37.1 % (13-45); MEAN CORPUSCULAR HGB CONC 33.6 g/dL (32.0-36.0); MEAN CORPUSCULAR VOLUME 84 fl (80-97); MONOCYTES % (AUTO) 11.1 % (3-13); PLATELET COUNT 191 10^3/uL (150-450); RED BLOOD COUNT 4.48 10^6/uL (3.72-5.28); SEGMENTED NEUTROPHILS % (AUTO) 44.7 % (42-78); TOTAL CELLS COUNTED % (AUTO) 100 %
[2019-11-02 08:43] LABS: ANION GAP 5 (5-19); BLOOD UREA NITROGEN 17 mg/dL (7-20); CALCIUM 8.9 mg/dL (8.4-10.2); CARBON DIOXIDE 29 mmol/L (22-30); CHLORIDE 102 mmol/L (98-107); GLUCOSE 70 mg/dL (75-110); POTASSIUM 3.8 mmol/L (3.6-5.0)
[2019-11-02] MEDS: INSULIN LISPRO 100 UNIT/ML 3 ML VIAL SUBCUT SCH ×5 (08:46→17:04)
[2019-11-02] MEDS: METFORMIN HCL 500 MG TABLET PO SCH ×2 (08:47→17:56)
[2019-11-02] MEDS ORDERED: INSULIN LISPRO 100 UNIT/ML 3 ML VIAL SUBCUT SCH (09:00)
--- NOTE | 2019-11-02 09:27 | PDOC PROGRESS REPORT ---
Subjective Progress Note for:: 11/02/19 Subjective:: MERI MCKOY is a 64 year old female with past medical history significant for chronic systolic CHF that was diagnosed when she was in her mid 40s and apparently nonischemic in etiology as she states that she had several coronary angiograms without any significant stenosis, VSD status post repair, hypertension, diabetes on insulin who presented to the emergency room complaining of lower extremity edema, abdominal distention, dyspnea on exertion, PND and orthopnea for 2 weeks. Presents with a 2-week history of progressive bilateral lower extremity edema/abdominal distention/dry cough/dyspnea on exertion, came to ED for further evaluation. Her admission chest x-ray demonstrated small bibasilar effusions and interstitial edema, her admission proBNP was 2540 and her troponins have been indeterminate. Since admission she has put out a little bit over 1000 cc of fluid and feels much better. She has no cardiovascular complaints. Her echocardiogram yesterday demonstrated an ejection fraction between 30 and 35% among other findings. Her telemetry shows normal sinus rhythm with PVCs and PACs. 11/02/2019: The patient had an uneventful night. Her urinary output decreased after switching her from IV to p.o. Lasix and she is only -460 cc however she is 100% improved and without clinical evidence of heart failure. She denies new cardiac complaints. Her telemetry continues to show controlled atrial fibrillation. Her electrolytes are stable and her blood pressure is now at goal. Her chest x- ray is still pending and her proBNP decreased from 2542 780. Physical exam on 11/02/2019: GENERAL: Pleasant and conversational. Oriented x3 with normal mood. Not in acute distress. Well groomed and well developed. HEENT: Normocephalic, atraumatic. Pupils equal. Sclerae anicteric. Oropharynx moist. NECK: No JVD. No carotid bruits. LUNGS: Clear to auscultation bilaterally. Normal respiratory effort without the use of accessory muscles or intercostal retractions. CARDIOVASCULAR: Regular rate and rhythm, normal S1 and S2 without murmurs, rubs, or gallops. PMI not displaced. ABDOMEN: No masses or tenderness to palpation. No bruit. No splenomegaly or hepatomegaly. No abdominal aorta bruit noted. EXTREMITIES: No edema, no cyanosis, no clubbing. +2 pulses femoral and pedal pulses bilaterally. SKIN: No lesions or rashes. MUSCULOSKELETAL: No chest tenderness to palpation. NEUROLOGIC: Nonfocal. No gross sensory or motor deficits bilateral upper or lower extremities. Cardiac studies: Echocardiogram on 10/30/2019: -Mild left ventricular enlargement. -Moderate to severe global hypokinesis. -EF 30 to 35%. -Mild MR, mild TR. -Mild LAE. Reason For Visit: ACUTE DIASTOLIC CHG EXACERBATION,VOLUME OVERLOAD, Physical Exam Vital Signs: Temp Pulse Resp BP Pulse Ox 98.4 F 72 18 129/65 H 99 11/02/19 03:09 11/02/19 03:09 11/02/19 03:09 11/02/19 03:09 11/02/19 03:09 Intake & Output 10/31/19 11/01/19 11/02/19 06:59 06:59 06:59 Intake Total 120 733 1056 Output Total 1400 1000 Balance -1010 420 730 Weight 55.6 kg 54.6 kg 54.5 kg Results Laboratory Results: 10/31/19 03:46 11/01/19 09:28 11/01/19 09:28 Sodium 132.8 L Potassium 4.1 Chloride 99 Carbon Dioxide 25 Anion Gap 9 BUN 17 Creatinine 0.56 Est GFR ( Amer) > 60 Glucose 389 H Calcium 8.7 Magnesium 2.0 10/30/19 10/30/19 10/30/19 01:05 01:05 05:25 Creatine Kinase 104 Troponin I 0.021 0.020 NT-Pro-B Natriuret Pep 2540 H Impressions: Chest X-Ray 10/29/19 23:30 IMPRESSION: Small bibasilar effusions. Mild interstitial edema copyright 2011 [employer]- All Rights Reserved 11/02/19 07:23 11/02/19 07:32 MCV 84 fl (80-97) 11/02/19 07:23 MCH 28.0 pg (27.0-33.4) 11/02/19 07:23 MCHC 33.6 g/dL (32.0-36.0) 11/02/19 07:23 RDW 14.0 % (11.5-14.0) 11/02/19 07:23 Seg Neutrophils % 44.7 % (42-78) 11/02/19 07:23 VBG pH 7.46 (7.30-7.42) H 10/30/19 02:49 VBG pCO2 38.4 mmHg (35-63) 10/30/19 02:49 VBG HCO3 26.6 mmol/L (20-32) 10/30/19 02:49 VBG Base Excess 2.8 mmol/L 10/30/19 02:49 Chloride 102 mmol/L (98-107) 11/02/19 07:32 Carbon Dioxide 29 mmol/L (22-30) 11/02/19 07:32 Anion Gap 5 (5-19) 11/02/19 07:32 Est GFR ( Amer) > 60 (>60) 11/02/19 07:32 Glucose 70 mg/dL (75-110) L 11/02/19 07:32 Calcium 8.9 mg/dL (8.4-10.2) 11/02/19 07:32 Phosphorus 4.3 mg/dL (2.5-4.5) 10/31/19 03:46 Magnesium 2.0 mg/dL (1.6-2.3) 11/01/19 09:28 Total Bilirubin 0.6 mg/dL (0.2-1.3) 10/30/19 01:05 AST 32 U/L (14-36) 10/30/19 01:05 Alkaline Phosphatase 114 U/L (38-126) 10/30/19 01:05 Total Protein 6.0 g/dL (6.3-8.2) L 10/30/19 01:05 Albumin 4.0 g/dL (3.5-5.0) 10/30/19 01:05 TSH 2.55 uIU/mL (0.47-4.68) 10/31/19 03:46 Urine Color STRAW 10/30/19 02:49 Urine Appearance CLEAR 10/30/19 02:49 Urine pH 6.0 (5.0-9.0) 10/30/19 02:49 Ur Specific [place] 1.008 10/30/19 02:49 Urine Protein NEGATIVE mg/dL (NEGATIVE) 10/30/19 02:49 Urine Glucose (UA) >=500 mg/dL (NEGATIVE) H 10/30/19 02:49 Urine Ketones NEGATIVE mg/dL (NEGATIVE) 10/30/19 02:49 Urine Blood NEGATIVE (NEGATIVE) 10/30/19 02:49 Urine Nitrite NEGATIVE (NEGATIVE) 10/30/19 02:49 Ur Leukocyte Esterase NEGATIVE (NEGATIVE) 10/30/19 02:49 Urine WBC (Auto) 1 /HPF 10/30/19 02:49 Urine RBC (Auto) 1 /HPF 10/30/19 02:49 10/30/19 10/30/19 10/30/19 01:05 01:05 05:25 Creatine Kinase 104 Troponin I 0.021 0.020 NT-Pro-B Natriuret Pep 2540 H 11/02/19 07:23 Creatine Kinase Troponin I NT-Pro-B Natriuret Pep 780 H Current Medication List Generic Name Dose Route Start Last Admin Trade Name Freq PRN Reason Stop Dose Admin Acetaminophen 650 mg 10/30/19 10:02 Tylenol 325 Mg Tablet PO 11/29/19 10:01 Q4HP PRN pain or fever Aspirin 81 mg 10/30/19 22:00 11/01/19 21:42 Ecotrin 81 Mg Ec Tablet PO 11/29/19 21:59 81 mg QHS ASHER Administration Carvedilol 12.5 mg 11/01/19 10:00 11/01/19 21:42 Coreg 12.5 Mg Tablet PO 12/01/19 09:59 12.5 mg Q12 ASHER Administration Dextrose 12.5 gm 10/30/19 16:30 Dextrose Inj 50% Syringe (25 Gm/50 Ml) IV 11/29/19 16:29 PRN PRN FOR BG 50-69 IN ALERT PATIENT Protocol Dextrose 25 gm 10/30/19 16:30 Dextrose Inj 50% Syringe (25 Gm/50 Ml) IV 11/29/19 16:29 PRN PRN Protocol Docusate Sodium 100 mg 11/01/19 11:00 11/01/19 11:55 Colace 100 Mg Capsule PO 12/01/19 10:59 Not Given Q2D ASHER Enoxaparin Sodium 40 mg 10/31/19 10:00 11/01/19 09:56 Lovenox Inj 40 Mg/0.4 Ml Disp.Syrin SUBCUT 11/30/19 09:59 Not Given DAILY ASHER Furosemide 40 mg 11/02/19 10:00 Lasix 40 Mg Tablet PO 12/02/19 09:59 BID ASHER Glucagon 1 mg 10/30/19 16:30 Glucagen Inj 1 Mg Vial IM 11/29/19 16:29 PRN PRN EVALUATE FOR BG < 70 Protocol Glucose 15 gm 10/30/19 16:30 Glutose 40% Gel 15 Gm Tube PO 11/29/19 16:29 PRN PRN FOR BG 50-69 IN ALERT PATIENT Protocol Glucose 30 gm 10/30/19 16:30 Glutose 40% Gel 15 Gm Tube PO 11/29/19 16:29 PRN PRN FOR BG < 50 IN ALERT PATIENT Protocol Insulin Glargine 26 unit 11/01/19 08:00 11/01/19 08:59 Lantus Insulin 100 Unit/1 Ml 10 Ml SUBCUT 12/01/19 07:59 26 unit QAM ASHER Administration Insulin Human Lispro 0 - 12 unit 10/30/19 17:00 11/02/19 08:49 Humalog Insulin 100 Unit/1 Ml 3 Ml Vial SUBCUT 11/29/19 16:59 Not Given ACHS [facility] Protocol Insulin Human Lispro 4 unit 11/02/19 09:00 11/02/19 08:46 Humalog Insulin 100 Unit/1 Ml 3 Ml Vial SUBCUT 12/02/19 08:59 4 unit BIDPCBL ASHER Administration Lisinopril 40 mg 11/02/19 10:00 Prinivil 10 Mg Tablet PO 12/02/19 09:59 DAILY [facility] Metformin HCl 500 mg 10/31/19 17:00 11/02/19 08:47 Glucophage 500 Mg Tablet PO 11/30/19 16:59 500 mg BIDACBS ASHER Administration Ondansetron HCl 4 mg 10/30/19 10:02 Zofran Odt 4 Mg Tablet PO 11/29/19 10:01 Q4HP PRN FOR NAUSEA/VOMITING Ondansetron HCl 4 mg 10/30/19 10:02 Zofran Inj/Pf 4 Mg/2 Ml Sdv IV 11/29/19 10:01 Q4HP PRN FOR NAUSEA/VOMITING Patient Own Medication 2 mg 10/30/19 22:00 Ropinirole Hcl [Requip Xl] PO 11/29/19 21:59 .QHS [facility] Sitagliptin Phosphate 100 mg 10/30/19 16:15 11/01/19 09:39 Januvia 50 Mg Tablet PO 11/29/19 16:14 100 mg DAILY ASHER Administration Discontinued Medications Generic Name Dose Route Start Last Admin Trade Name Freq PRN Reason Stop Dose Admin Acetaminophen 650 mg 10/29/19 23:32 10/30/19 01:22 Tylenol 325 Mg Tablet PO 10/29/19 23:33 Not Given NOW ONE Amlodipine Besylate 5 mg 10/30/19 16:15 10/31/19 10:30 Norvasc 5 Mg Tablet PO 11/29/19 16:14 5 mg DAILY ASHER Administration Aspirin 81 mg 10/30/19 17:00 10/30/19 17:49 Ecotrin 81 Mg Ec Tablet PO 11/29/19 16:59 Not Given DAILY ASHER Carvedilol 6.25 mg 10/30/19 18:00 11/01/19 05:49 Coreg 6.25 Mg Tablet PO 11/29/19 17:59 6.25 mg Q12A ASHER Administration Docusate Sodium 100 mg 10/30/19 10:15 11/01/19 09:56 Colace Udc 100 Mg/10 Ml Oral Soln PO 11/29/19 10:14 Not Given Q2D ASHER Furosemide 40 mg 10/30/19 01:04 10/30/19 01:24 Lasix Inj/Pf 40 Mg/4 Ml Sdv IV 10/30/19 01:05 40 mg NOW ONE Administration Furosemide 40 mg 10/30/19 18:00 11/01/19 05:49 Lasix Inj/Pf 40 Mg/4 Ml Sdv IV 11/29/19 17:59 40 mg Q12A ASHER Administration Furosemide 40 mg 11/02/19 10:00 Lasix 40 Mg Tablet PO 12/02/19 09:59 DAILY [facility] Insulin Glargine 26 unit 10/30/19 16:15 Lantus Insulin 100 Unit/1 Ml 10 Ml SUBCUT 11/29/19 16:14 QAM [facility] Insulin Glargine 26 unit 10/31/19 06:00 Lantus Insulin 100 Unit/1 Ml 10 Ml SUBCUT 11/30/19 05:59 Q6AM [facility] Insulin Glargine 26 unit 10/31/19 08:00 Lantus Insulin 100 Unit/1 Ml 10 Ml SUBCUT 11/30/19 05:59 QAM [facility] Insulin Glargine 26 unit 10/31/19 11:00 10/31/19 10:35 Lantus (Pyxis) Insulin 100 Unit/1 Ml 10 Ml SUBCUT 10/31/19 11:01 26 unit NOW ONE Administration Insulin Glargine 26 unit 11/01/19 09:15 11/01/19 09:42 Lantus (Pyxis) Insulin 100 Unit/1 Ml 10 Ml SUBCUT 11/01/19 09:16 Not Given NOW ONE Insulin Human Lispro 0 - 12 unit 10/30/19 22:00 Humalog Insulin 100 Unit/1 Ml 3 Ml Vial SUBCUT 11/29/19 21:59 ACHS [facility] Protocol Insulin Human Lispro 5 unit 10/31/19 17:00 11/01/19 12:02 Humalog Insulin 100 Unit/1 Ml 3 Ml Vial SUBCUT 11/30/19 16:59 5 unit AC ASHER Administration Insulin Human Lispro 5 unit 11/02/19 09:00 Humalog Insulin 100 Unit/1 Ml 3 Ml Vial SUBCUT 12/02/19 08:59 BIDPCBL [facility] Insulin Human Regular 5 unit 10/30/19 02:31 10/30/19 02:41 Humulin R (Pyxis) Insulin 100 Unit/Ml 3ml SUBCUT 10/30/19 02:32 5 unit NOW ONE Administration Lisinopril 20 mg 10/31/19 10:00 10/31/19 10:31 Prinivil 10 Mg Tablet PO 11/30/19 09:59 20 mg DAILY ASHER Administration Lisinopril 40 mg 11/01/19 10:00 11/01/19 09:40 Prinivil 10 Mg Tablet PO 12/01/19 09:59 40 mg DAILY ASHER Administration Sacubitril/Valsartan 1 tab 11/03/19 10:00 Entresto 24 Mg/26 Mg Tablet PO 12/03/19 09:59 BID ASHER Assessment & Plan - Diagnosis (1) Heart failure with reduced ejection fraction Plan: She is currently at her dry weight and 100% improved. Unfortunately her urinary output decreased after switching her from IV Lasix to p.o. Lasix therefore I increased the dose to 40 mg p.o. twice daily. I have also arranged for life vest as well as outpatient Lexiscan nuclear stress test. She is ready to be discharged from the cardiovascular standpoint. Recommendations: -The patient may be discharged from the cardiovascular standpoint. -She will follow-up with Dr. Reyes in our office in [place]. -Continue with lisinopril to 40 mg daily. -Continue with Coreg to 12.5 mg twice daily. -Plan to switch lisinopril to Entresto in the outpatient setting. -Plan to add Aldactone in the outpatient setting. -Lasix 40 mg p.o. twice daily. -Restrict fluid intake to 1500 cc daily. -Low sodium diet, less than 1500 mg daily. -Strict intake and output. -Lexiscan MPS in the outpatient setting, I have already arranged for it. -Life vest before discharge, I have arranged for it already. (2) HTN (hypertension) Is this a current diagnosis for this admission?: Yes Plan: Her blood pressure is above goal. Please see above for recommendations. (3) T2DM (type 2 diabetes mellitus) Qualifiers: Diabetes mellitus ferry terminal agent insulin use: with mcfp use Diabetes mellitus complication status: without complication Qualified Code(s): E11.9 - Type 2 diabetes mellitus without complications; Z79.4 - ocean transportation intermediary (current) use of insulin Is this a current diagnosis for this admission?: Yes Plan: Management per primary team. (4) Nonischemic dilated cardiomyopathy Plan: See above for recommendations.
[2019-11-02] MEDS: ENOXAPARIN SODIUM INJ 40 MG/0.4 ML DISP.SYRIN SUBCUT SCH (09:41)
[2019-11-02] MEDS: INSULIN GLARGINE,HUM.REC.ANLOG 1,000 UNIT/10 ML VIAL SUBCUT SCH (09:41)
[2019-11-02] MEDS: CARVEDILOL 12.5 MG TABLET PO SCH (09:46)
[2019-11-02] MEDS: FUROSEMIDE 40 MG TABLET PO SCH ×2 (09:46→17:56)
[2019-11-02] MEDS: SITAGLIPTIN PHOSPHATE 50 MG TABLET PO SCH (09:47)
[2019-11-02] MEDS ORDERED: LISINOPRIL 10 MG TABLET PO SCH (10:00)
[2019-11-02] MEDS ORDERED: FUROSEMIDE 40 MG TABLET PO SCH (10:00)
--- NOTE | 2019-11-02 15:54 | Progress Note ---
Provider Note Provider Note: I was just informed that, unfortunately, the patient is unable to get her Life- Vest prior to discharge but will be set up to get it on next week. The patient has remained hemodynamically and electrically stable during this hospitalization and in the prior several years. She is currently well compensated and on GDMT. Her admission telemetry has been negative for both atrial and ventricular dysrhythmias. At this point I believe the patient can be discharged from the hospital with cardiology follow up in our office early next week with plans to obtain Life-Vest as proposed next .
--- NOTE | 2019-11-02 18:20 | RADIOLOGY REPORT (SQ) ---
EXAM DESCRIPTION: CHEST 2 VIEWS IMAGES COMPLETED DATE/TIME: 11/02/2019 9:59 am REASON FOR STUDY: Heart failure COMPARISON: Chest radiograph 10/30/2019. EXAM PARAMETERS: NUMBER OF VIEWS: two views TECHNIQUE: Digital Frontal and Lateral radiographic views of the chest acquired. RADIATION DOSE: NA LIMITATIONS: none FINDINGS: LUNGS AND PLEURA: Lungs are hyperinflated. No focal consolidation or pleural effusion. N o pneumothorax. Improved aeration at the left lung base. MEDIASTINUM AND HILAR STRUCTURES: No masses or contour abnormalities. HEART AND VASCULAR STRUCTURES: Heart normal size. No evidence for failure. BONES: No acute findings. HARDWARE: None in the chest. OTHER: No other significant finding. IMPRESSION: No acute cardiopulmonary disease. Hyperinflated lungs which can be seen with obstructiv e lung disease. TECHNICAL DOCUMENTATION: JOB ID: [id number] 2010 [facility]- All Rights Reserved Reading location - IP/workstation name: [email or web address]
--- NOTE | 2019-11-02 18:32 | PDOC DISCHARGE SUMMARY ---
Impression - Admit/DC Date/PCP Admission Date/Primary Care Provider: 10/30/19 07:57 Discharge Date: 11/02/19 - Discharge Diagnosis (1) Congestive heart failure Is this a current diagnosis for this admission?: Yes (2) T2DM (type 2 diabetes mellitus) Is this a current diagnosis for this admission?: Yes (3) Orthopnea Is this a current diagnosis for this admission?: Yes (4) HTN (hypertension) Is this a current diagnosis for this admission?: Yes (5) S/P VSD repair Is this a current diagnosis for this admission?: Yes - Additional Information Resuscitation Status: Full Code Discharge Diet: Cardiac, Diabetic Discharge Activity: Activity As Tolerated, Balance Activity w/Rest, Weigh Daily Referrals: [facility] [NO LOCAL MD] - Follow up as needed Prescriptions: Carvedilol [Coreg 12.5 mg Tablet] 12.5 mg PO Q12 #60 tablet Insulin Aspart 4 unit SQ BIDACBL #1 vial Furosemide [Lasix 40 mg Tablet] 40 mg PO BID #60 tablet Lisinopril [Zestril] 40 mg PO DAILY #30 tablet Home Medications: Aspirin [Aspirin EC] 81 mg PO DAILY 11/11/15 Insulin Glargine,Hum.rec.anlog [Lantus Insulin 100 Unit/1 ml 10 ml] 26 unit SQ QAM 06/23/18 Ropinirole HCl [Requip Xl] 2 mg PO QHS 10/30/19 Sitagliptin Phosphate [Januvia 50 mg Tablet] 100 mg PO DAILY 10/30/19 Carvedilol [Coreg 12.5 mg Tablet] 12.5 mg PO Q12 #60 tablet 11/02/19 Furosemide [Lasix 40 mg Tablet] 40 mg PO BID #60 tablet 11/02/19 Insulin Aspart 4 unit SQ BIDACBL #1 vial 11/02/19 Insulin Aspart [Novolog Insulin (Aspart) 100 unit/mL] 0 units SQ .PERSLIDINGSCALE #1 11/02/19 Lisinopril [Zestril] 40 mg PO DAILY #30 tablet 11/02/19 History of Present Illiness History of Present Illness: MERI MCKOY is a 64 year old female with past medical history significant for chronic systolic CHF, VSD status post repair, HTN, T2DM on insulin who presents with a 2-week history of progressive bilateral lower extremity edema/abdominal distention/dry cough/dyspnea on exertion, came to ED for further evaluation. Chest x-ray with small bibasilar effusions and interstitial edema, EKG with nonspecific ST changes and borderline prolonged QTC, troponin very mildly elevated. Cardiology contacted by ED and they have agreed to consult. Patient found to have significant lower extremity edema with wet sounding lungs. Given IV Lasix with significant improvement in both edema and breathing. Patient denies any coronavirus contacts and denies fevers at home. Hospital Course Hospital Course: Patient with for acute on chronic systolic CHF with exacerbation and worsening dyspnea on exertion and peripheral edema. She is started on IV Lasix and cardiology was consulted. Her cardiac medications were repeatedly adjusted to be optimized. She is planned to have a follow-up with cardiology within 1 week of discharge and she will be started on Entresto at that point, she is also being evaluated for a LifeVest which cardiology now believes can be set up next week. They believe she is currently very low risk for any cardiac arrhythmia event and have stated they believe she is safe to be discharged home in the meantime. Patient had significant improvement in her symptoms and peripheral and central edema have resolved to her usual baseline. Physical Exam Vital Signs: Temp Pulse Resp BP Pulse Ox 98.0 F 72 15 130/74 H 100 11/02/19 16:18 11/02/19 16:18 11/02/19 16:18 11/02/19 16:18 11/02/19 16:18 Intake & Output 11/01/19 11/02/19 11/03/19 06:59 06:59 06:59 Intake Total 420 1730 480 Output Total 1000 900 Balance 420 730 -420 Weight 54.6 kg 54.5 kg Exam: General appearance: PRESENT: no acute distress, well-developed, well-nourished, states she feels back to normal and would like to be discharged home Head exam: PRESENT: atraumatic, normocephalic Eye exam: PRESENT: conjunctiva pink Mouth exam: PRESENT: moist Respiratory exam: unlabored. ABSENT: rhonchi, wheezes Cardiovascular exam: PRESENT: RRR. ABSENT: diastolic murmur, rubs, systolic murmur GI/Abdominal exam: PRESENT: normal bowel sounds, soft. ABSENT: distended, guarding, mass, organolmegaly, rebound, tenderness Extremities exam: PRESENT: Almost completely resolved pedal edema Neurological exam: PRESENT: alert, awake, oriented to person, oriented to place, oriented to time, oriented to situation Psychiatric exam: PRESENT: appropriate affect, normal mood Skin exam: PRESENT: dry, intact, warm Results Laboratory Results: WBC 4.0 10^3/uL (4.0-10.5) 11/02/19 07:23 RBC 4.48 10^6/uL (3.72-5.28) 11/02/19 07:23 Hgb 12.6 g/dL (12.0-15.5) 11/02/19 07:23 Hct 37.5 % (36.0-47.0) 11/02/19 07:23 MCV 84 fl (80-97) 11/02/19 07:23 MCH 28.0 pg (27.0-33.4) 11/02/19 07:23 MCHC 33.6 g/dL (32.0-36.0) 11/02/19 07:23 RDW 14.0 % (11.5-14.0) 11/02/19 07:23 Plt Count 191 10^3/uL (150-450) 11/02/19 07:23 Lymph % (Auto) 37.1 % (13-45) 11/02/19 07:23 [place] % (Auto) 11.1 % (3-13) 11/02/19 07:23 Eos % (Auto) 6.6 % (0-6) H 11/02/19 07:23 Baso % (Auto) 0.5 % (0-2) 11/02/19 07:23 Absolute Neuts (auto) 1.8 10^3/uL (1.7-8.2) 11/02/19 07:23 Absolute Lymphs (auto) 1.5 10^3/uL (0.5-4.7) 11/02/19 07:23 Absolute Monos (auto) 0.4 10^3/uL (0.1-1.4) 11/02/19 07:23 Absolute Eos (auto) 0.3 10^3/uL (0.0-0.6) 11/02/19 07:23 Absolute Basos (auto) 0.0 10^3/uL (0.0-0.2) 11/02/19 07:23 Seg Neutrophils % 44.7 % (42-78) 11/02/19 07:23 VBG pH 7.46 (7.30-7.42) H 10/30/19 02:49 VBG pCO2 38.4 mmHg (35-63) 10/30/19 02:49 VBG HCO3 26.6 mmol/L (20-32) 10/30/19 02:49 VBG Base Excess 2.8 mmol/L 10/30/19 02:49 Sodium 136.1 mmol/L (137-145) L 11/02/19 07:32 Potassium 3.8 mmol/L (3.6-5.0) 11/02/19 07:32 Chloride 102 mmol/L (98-107) 11/02/19 07:32 Carbon Dioxide 29 mmol/L (22-30) 11/02/19 07:32 Anion Gap 5 (5-19) 11/02/19 07:32 BUN 17 mg/dL (7-20) 11/02/19 07:32 Creatinine 0.55 mg/dL (0.52-1.25) 11/02/19 07:32 Est GFR ( Amer) > 60 (>60) 11/02/19 07:32 Est GFR (MDRD) Non-Af > 60 (>60) 11/02/19 07:32 Glucose 70 mg/dL (75-110) L 11/02/19 07:32 POC Glucose 137 mg/dL (70-110) H 11/02/19 16:17 Hemoglobin A1c % 8.7 % (4.7-6.0) H 10/31/19 03:46 Calcium 8.9 mg/dL (8.4-10.2) 11/02/19 07:32 Phosphorus 4.3 mg/dL (2.5-4.5) 10/31/19 03:46 Magnesium 2.0 mg/dL (1.6-2.3) 11/01/19 09:28 Total Bilirubin 0.6 mg/dL (0.2-1.3) 10/30/19 01:05 Direct Bilirubin 0.2 mg/dL (0.0-0.4) 10/30/19 01:05 Neonat Total Bilirubin Not Reportable 10/30/19 01:05 Neonat Direct Bilirubin Not Reportable 10/30/19 01:05 Neonat Indirect Bili Not Reportable 10/30/19 01:05 AST 32 U/L (14-36) 10/30/19 01:05 ALT 37 U/L (<35) H 10/30/19 01:05 Alkaline Phosphatase 114 U/L (38-126) 10/30/19 01:05 Creatine Kinase 104 U/L (30-135) 10/30/19 01:05 Troponin I 0.020 ng/mL 10/30/19 05:25 NT-Pro-B Natriuret Pep 780 pg/mL (<125) H 11/02/19 07:23 Total Protein 6.0 g/dL (6.3-8.2) L 10/30/19 01:05 Albumin 4.0 g/dL (3.5-5.0) 10/30/19 01:05 TSH 2.55 uIU/mL (0.47-4.68) 10/31/19 03:46 Urine Color STRAW 10/30/19 02:49 Urine Appearance CLEAR 10/30/19 02:49 Urine pH 6.0 (5.0-9.0) 10/30/19 02:49 Ur Specific [place] 1.008 10/30/19 02:49 Urine Protein NEGATIVE mg/dL (NEGATIVE) 10/30/19 02:49 Urine Glucose (UA) >=500 mg/dL (NEGATIVE) H 10/30/19 02:49 Urine Ketones NEGATIVE mg/dL (NEGATIVE) 10/30/19 02:49 Urine Blood NEGATIVE (NEGATIVE) 10/30/19 02:49 Urine Nitrite NEGATIVE (NEGATIVE) 10/30/19 02:49 Urine Bilirubin NEGATIVE (NEGATIVE) 10/30/19 02:49 Urine Urobilinogen NEGATIVE mg/dL (<2.0) 10/30/19 02:49 Ur Leukocyte Esterase NEGATIVE (NEGATIVE) 10/30/19 02:49 Urine WBC (Auto) 1 /HPF 10/30/19 02:49 Urine RBC (Auto) 1 /HPF 10/30/19 02:49 Urine Bacteria (Auto) 1+ /HPF 10/30/19 02:49 Squamous Epi Cells Auto 1 /HPF 10/30/19 02:49 Urine Mucus (Auto) RARE /LPF 10/30/19 02:49 Urine Ascorbic Acid NEGATIVE (NEGATIVE) 10/30/19 02:49 10/30/19 10/30/19 11/02/19 01:05 05:25 07:23 Troponin I 0.021 0.020 NT-Pro-B Natriuret Pep 2540 H 780 H Impressions: Chest X-Ray 10/29/19 23:30 IMPRESSION: Small bibasilar effusions. Mild interstitial edema copyright 2010 [employer]- All Rights Reserved Chest X-Ray 11/02/19 00:00 IMPRESSION: No acute cardiopulmonary disease. Hyperinflated lungs which can be seen with obstructive lung disease. Plan Plan of Treatment: Follow-up with PCP Follow-up with cardiology Entresto to be started outpatient LifeVest to be given outpatient by cardiology Time Spent: Greater than 30 Minutes Stroke Is this a Stroke Patient?: No Acute Heart Failure - Is this a Heart Failure Patient?: Yes Documentation of LVEF assessment?: Yes LVEF: LVEF Less Than or Equal to 35% Anticoagulant Therapy: N/A Discharged on Evidence-Based Beta Blockers: Yes Discharged on ARNI?: No-Document Contraindications Reason(s) not discharged on ARNI: ACEI use within the prior 36 hours Discharged on ARB?: N/A-Discharged on ARNI Discharged on ACEI?: Yes For LVEF <35%, discharged on Aldosterone Antagonist?: N/A (LVEF > or = 35%) Reason(s) not discharged on Aldosterone Antagonist: Other Aldosterone Antagonist Reason - Other: will be started outpatient by cardiology Follow-up Appointment scheduled within 7 days?: Yes
[2019-11-02 22:09] VITALS: BP 156/74
[2019-11-03] MEDS ORDERED: SACUBITRIL/VALSARTAN 24 MG/26 MG TABLET PO SCH (10:00)
== END 2019-11-02 19:30 | disposition home or self-care (01) | DRG 293 ==
LOC: ER 20:50 → EH 10-30 07:57 → 5 10-30 14:54
PROVIDERS: ADMIT Internal Medicine; ATTEND Internal Medicine
DX: I11.0 Hypertensive heart disease with heart failure (principal); I50.23 Acute on chronic systolic (congestive) heart failure; I42.0 Dilated cardiomyopathy; Z87.74 Personal history of (corrected) congenital malformations of heart and circulatory system; E11.9 Type 2 diabetes mellitus without complications; Z88.0 Allergy status to penicillin; Z91.040 Latex allergy status; Z79.4 Long term (current) use of insulin
CPT/HCPCS: 36415; 71046; 80048; 80053; 81001; 82550; 82803; 82962; 83036; 83735; 83880; 84100; 84443; 84484; 85025; 87086; 93005; 93010; 93306; 96374; 99285; J1650; J1815; J1940

== ENCOUNTER → 2019-11-15 | Outpatient (CLI) | payer OTHER ==
[~2019-11-15] MED LIST changes: +ALBUTEROL SULFATE 0.083% NEB 2.5 MG/3 ML AMPUL NEB ONE; -KETOROLAC TROMETHAMINE 0.45% 4 DROP/0.4 ML DROPERETTE OS PRN; -MIDAZOLAM 2 MG/2 ML INJ ONE; +REGADENOSON INJ 0.4 MG/5 ML DISP.SYRIN IV ONE
--- NOTE | 2019-11-15 18:49 | DRAGON STRESS TEST REPORT ---
INTRAVENOUS LEXISCAN CARDIOLITE STRESS TEST USING SINGLE PHOTON EMMISION COMPUTERIZED TOMOGRAPHIC. DATE OF PROCEDURE: November 15, 2019. INDICATION : Cardiomyopathy, CHF CARDIAC RISK FACTORS: Diabetes, hypertension RESTING EKG: Sinus rhythm, right axis deviation, LVH, diffuse T wave abnormalities. STRESS EKG: No significant ST segment changes noted with LexiScan bolus REASON FOR TERMINATION: Protocol. PROCEDURE REPORT: Baseline heart rate 72 beats per minute with blood pressure of 142/71. Patient had no significant complaints. Patient was bolused with Lexiscan 0.4 mg intravenously followed by saline bolus. Heart rate at 2 minutes post bolus 81 with a blood pressure of 148/69. 3 minutes post bolus heart rate 73 with blood pressure of 134/53. No significant EKG changes were noted. Patient had no significant complaints during the procedure or postprocedure. CONCLUSIONS: Normal EKG and hemodynamic response to IV LexiScan. NUCLEAR DATA: At rest the patient was given 10.94 millicuries of technetium 99 sestamibi injected intravenously. As per protocol rest gated SPECT images were obtained. On day of stress test, the patient was given intravenous LexiScan at a dose of 0.4 mg in 5 mL intravenously, followed by flush with normal saline. Subsequently the stress dose of 32.0 millicuries of technetium 99 sestamibi was injected intravenously. As per protocol stress gated images were obtained. NUCLEAR INTERPRETATION: Both raw and processed data were used for interpretation. Visual, qualitative, computer-generated quantitative data was used. There was good myocardial uptake of technetium compound. Motion artifact and soft tissue attenuations were noted. Increased visceral uptake was noted. Decreased uptake was noted in the LV apex of moderate severity, mild decreased uptake noted in the basal and mid inferior wall in both rest and stress images but somewhat more prominent in the stress images as compared to rest images. Severe diffuse hypokinesia was noted on gated imaging with estimated stress EF of 27%, rest EF was 30%. SDS was 4. T. I D. ratio was 1.20. Lung heart ratio noted to be within normal limits 0.34. No significant extracardiac and abnormal radiotracer activities were noted. RV free wall uptake was noted to be WNL. IMPRESSION: Also refer to comments under nuclear interpretation. Also test results needs to be interpreted in the context of pretest probability. 1. Decreased uptake was noted in the LV apex of moderate severity, mild decreased uptake noted in the basal and mid inferior wall in both rest and stress images but somewhat more prominent in the stress images as compared to rest images. Severe diffuse hypokinesia was noted on gated imaging with estimated stress EF of 27%, rest EF was 30%. SDS was 4. This is consistent with previous apical infarct with probable minimal ischemia however could well be from normal apical thinning. Cannot rule out mild inferior wall ischemia. Study was technically difficult. Clinical correlation is requested. 2. EKG gated imaging shows left ventricular ejection fraction of approx. 27% with severe diffuse hypokinesia. 4. Clinical correlation requested as worse disease and or balanced ischemia could be missed. In approximately 10% of the cases Lexiscan may not cause adequate vasodilatory stress. RECOMMENDATIONS: Best option would be to proceed with cardiac CTA/cardiac cath if clinically indicated. Aggressive risk factor modification and medical management. Further evaluation may be needed if continued symptoms or other high risk indicators are noted on clinical evaluation. Close cardiology follow-up is also recommended. Clinical correlation with echocardiogram derived ejection fraction. Inability to exercise by itself can lead to increased cardiovascular event risks. Dr. Solomon Lazaro. MRCP Board certified in cardiology and sleep medicine. Board certified in nuclear cardiology, adult echocardiography. KAY
== END ==
LOC: RAD 07:51
PROVIDERS: ATTEND Internal Medicine Cardiovascular Disease
DX: I50.9 Heart failure, unspecified (principal)
CPT/HCPCS: 93017; 78452; A9500; J2785; J7613; Q9969

== ENCOUNTER → 2019-12-07 | Outpatient (CLI) | payer OTHER ==
[2019-12-07 12:10] LABS: ABSOLUTE EOSINOPHILS # (AUTO) 0.2 10^3/uL (0.0-0.6); ABSOLUTE MONOCYTES (AUTO) 0.4 10^3/uL (0.1-1.4); ABSOLUTE NEUT (AUTO) 1.8 10^3/uL (1.7-8.2); BASOPHILS % (AUTO) 0.6 % (0-2); EOSINOPHILS % (AUTO) 5.1 % (0-6); HEMATOCRIT 37.3 % (36.0-47.0); HEMOGLOBIN 12.7 g/dL (12.0-15.5); LYMPHOCYTES % (AUTO) 30.6 % (13-45); MEAN CORPUSCULAR HGB CONC 34.1 g/dL (32.0-36.0); MEAN CORPUSCULAR VOLUME 82 fl (80-97); MONOCYTES % (AUTO) 10.9 % (3-13); PLATELET COUNT 130 10^3/uL (150-450); RED BLOOD COUNT 4.54 10^6/uL (3.72-5.28); RED CELL DISTRIBUTION WIDTH 13.7 % (11.5-14.0); SEGMENTED NEUTROPHILS % (AUTO) 52.8 % (42-78); TOTAL CELLS COUNTED % (AUTO) 100 %; WHITE BLOOD COUNT 3.3 10^3/uL (4.0-10.5)
[2019-12-07 12:50] LABS: ALBUMIN 4.1 g/dL (3.5-5.0); ALKALINE PHOSPHATASE 142 U/L (38-126); ANION GAP 10 (5-19); ASPARTATE AMINO TRANSFERASE 34 U/L (14-36); BILIRUBIN,DIRECT 0.2 mg/dL (0.0-0.4); BILIRUBIN,TOTAL 0.7 mg/dL (0.2-1.3); BLOOD UREA NITROGEN 18 mg/dL (7-20); CALCIUM 9.2 mg/dL (8.4-10.2); CARBON DIOXIDE 27 mmol/L (22-30); CHLORIDE 103 mmol/L (98-107); GLUCOSE 151 mg/dL (75-110); POTASSIUM 3.9 mmol/L (3.6-5.0); TOTAL PROTEIN 6.3 g/dL (6.3-8.2)
== END ==
LOC: CCC 10:40
PROVIDERS: ATTEND Family Medicine
DX: Z13.9 Encounter for screening, unspecified (principal)
CPT/HCPCS: 36415; 80053; 85025

== ENCOUNTER 2020-01-21 18:43 | Emergency (ER) | payer OTHER ==
[2020-01-21 22:09] VITALS: BP 142/76
[2020-01-21] MEDS ORDERED: CYCLOBENZAPRINE HCL 10 MG TABLET PO ONE (22:15)
--- NOTE | 2020-01-21 23:04 | RADIOLOGY REPORT (SQ) ---
CT CERVICAL SPINE: 01/21/2020 9:56 PM APPLICATIONS ENGINEERING MANAGER TECHNIQUE: Axial contiguous images were obtained through the cervical spine without intravenous contrast. Sagittal and coronal reconstructions were also reviewed. This exam was performed according to our departmental dose-optimization program, which includes automated exposure control, adjustment of the mA and/or KV according to the patient's size and/or use of iterative reconstruction technique. COMPARISON: None available INDICATION: 64-year old patient with neck pain . FINDINGS: Multilevel anterior osteophytes are seen at the cervical spine. There is mild to moderate facet hypertrophy contributing to at least mild neural foraminal narrowing. There is retrolisthesis of C6 over C7 by approximately 4 to 5 mm. There is some loss of height at six or C7, which is likely degenerative. No significant pre-vertebral soft tissue swelling is noted. No definite fracture or subluxation is noted. Moderate multilevel intervertebral disc space narrowing is seen. The visualized brain parenchyma appears unremarkable. The craniocervical junction is unremarkable. IMPRESSION: There are no findings to suggest an acute fracture or subluxation within the cervical spine. Multilevel degenerative changes are seen at the cervical spine.
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
== END 2020-01-21 23:35 | disposition home or self-care (01) ==
LOC: ER 18:43
DX: M50.30 Other cervical disc degeneration, unspecified cervical region (principal); M25.78 Osteophyte, vertebrae; I10 Essential (primary) hypertension; E11.9 Type 2 diabetes mellitus without complications
CPT/HCPCS: 72125; 99285